=== PATIENT | female | born 1990 | race Caucasian/White ===

== ENCOUNTER → 2017-04-22 | Outpatient (CLI) | payer OTHER ==
--- NOTE | 2017-04-22 18:33 | RADIOLOGY REPORT (SQ) ---
EXAM DESCRIPTION: CT RT UPPER EXTREMITY WITHOUT COMPLETED DATE/TIME: 04/22/2017 12:49 pm REASON FOR STUDY: RECURRENT DISLOCATION, RIGHT SHOULDER M24.411 RECURRENT DISLOCATION, RIGHT SHOULD ER COMPARISON: None. TECHNIQUE: Axial imaging performed through the rightshoulder with reformatted oblique coronal and ob lique sagittal imaging windowed for bone and soft tissues. All CT scanners at this facility use dose modulation, iterative reconstruction, and/or weight based d osing when appropriate to reduce radiation dose to as low as reasonably achievable (ALARA). [facility]: Dose Right [facility]: CareDose [facility]: Dose Right [facility]: Teradose 4D [facility]: Smart TARGET BRAZIL RADIATION DOSE: Up-to-date CT equipment and radiation dose reduction techniques were employed. CTDIv ol: 32.1 mGy. DLP: 790 mGy-cm. mGy. LIMITATIONS: None. FINDINGS: SOFT TISSUES: There is no significant finding. BONY ARCHITECTURE: There is no Hill-Sachs deformity. There is no Bankart lesion. GLENOHUMERAL JOINT: Glenohumeral joint is normal. There is no current dislocation. ACROMION AND AC JOINT: There is no significant finding. GLENOID, LABRUM AND BICEPS: The biceps tendon is in the bicipital groove. The labrum is not well israel luated. OTHER: No other significant finding. IMPRESSION: No significant abnormality is seen. Consider MRI for better evaluation of the soft tiss ues including the rotator cuff and glenoid labrum. TECHNICAL DOCUMENTATION: JOB ID: [id number] Quality ID # [id number]: Final reports with documentation of one or more dose reduction techniques (e.g., Au tomated exposure control, adjustment of the mA and/or kV according to patient size, use of iterative reconstruction technique) 2010 [employer]- All Rights Reserved
== END ==
LOC: RAD 12:36
PROVIDERS: ATTEND Orthopaedic Surgery
DX: M24.411 Recurrent dislocation, right shoulder (principal)

== ENCOUNTER 2018-04-23 17:11 | Emergency (ER) | payer OTHER ==
[2018-04-23 17:18] VITALS: BP 138/78
--- NOTE | 2018-04-23 17:32 | ER Document Report ---
HPI - HPI Patient complains to provider of: Breast leaking and pelvic cramping Onset: Other - Thursday Onset/Duration: Waxing and waning Pain Level: 3 Context: 27-year-old female is complaining of spontaneous discharge from both breasts when the shower and also she can manually express it since Thursday. She also has not had a menses for 2 months. Negative home test. She has pelvic cramping. No vaginal discharge or odor. Her ParaGard was taken out 6-7 weeks ago which was a copper IUD without hormones. No history of thyroid problems. She had a breast augmentation October 05, 2017. Associated Symptoms: None Exacerbated by: Denies Past Medical History - General Information source: Patient - Social History Smoking Status: Current Every Day Smoker Frequency of alcohol use: None Drug Abuse: None Lives with: Family Family History: Reviewed & Not Pertinent - Medical History Medical History: Negative Renal/ Medical History: Denies: Hx Peritoneal Dialysis Past Surgical History: Reports: Other - breast augmentation Vertical Provider Document - CONSTITUTIONAL Agree With Documented VS: Yes Exam Limitations: No Limitations - INFECTION CONTROL TRAVEL OUTSIDE OF THE U.S. IN LAST 30 DAYS: No - NECK Neck: Supple, Thyroid Normal - RESPIRATORY Respiratory: Breath Sounds Normal, No Respiratory Distress Notes: no red streaking, pain or drainage of nipples/breasts at this time - CARDIOVASCULAR Cardiovascular: Regular Rate, Regular Rhythm - NEURO Level of Consciousness: Alert - DERM Integumentary: No Rash Course - Re-evaluation Re-evalutation: 04/23/18 19:25 test is negative, prolactin, TSH, gonorrhea, Chlamydia are pending. Urinalysis is pending. Her wet prep shows bacterial vaginosis I will treat with Flagyl. Patient does not want to take treatment for possible gonorrhea or chlamydia because she was negative when she was in rehab. She is "sober" at this time. 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 See [employer] if the symptoms persist Prescriptions: Metronidazole [Flagyl 500 mg Tablet] 500 mg PO BID #14 tablet Referrals: PABLO CONLEY MD [Primary Care Provider] - 04/26/18
[2018-04-23 18:32] LABS: BACTERIA (WET MOUNT) 4+ BACTERIA SEEN; EPITHELIALS (WET MOUNT) 4+ EPITHELIALS SEEN; RBCS (WET MOUNT) FEW RBCS SEEN; T.VAGINALIS (WET MOUNT) NO TRICHOMONAS SEEN; WBCS (WET MOUNT) 1+ WBCS SEEN; YEAST (WET MOUNT) NO YEAST SEEN
[2018-04-23 19:56] LABS: CHLAM PCR NOT DETECTED (NOT DETECT); GON PCR NOT DETECTED (NOT DETECT)
[2018-04-23 20:06] LABS: APPEARANCE,URINE CLOUDY; BILIRUBIN,URINE NEGATIVE (NEGATIVE); COLOR,URINE YELLOW; GLUCOSE, URINE NEGATIVE (NEGATIVE); KETONES,URINE NEGATIVE (NEGATIVE); LEUKOCYTE ESTERASE,URINE NEGATIVE (NEGATIVE); NITRITE,URINE NEGATIVE (NEGATIVE); PROTEIN,URINE NEGATIVE (NEGATIVE); URINE SPECIFIC GRAVITY 1.015; UROBILINOGEN,URINE NEGATIVE mg/dL (<2.0)
[2018-04-23 21:16] LABS: ALANINE AMINOTRANSFERASE 105 U/L (9-52); ALBUMIN 4.4 g/dL (3.5-5.0); ALKALINE PHOSPHATASE 96 U/L (38-126); ANION GAP 15 (5-19); ASPARTATE AMINO TRANSFERASE 44 U/L (14-36); BILIRUBIN,DIRECT 0.3 mg/dL (0.0-0.4); BILIRUBIN,TOTAL 0.4 mg/dL (0.2-1.3); BLOOD UREA NITROGEN 13 mg/dL (7-20); CARBON DIOXIDE 23 mmol/L (22-30); CHLORIDE 106 mmol/L (98-107); GLUCOSE 86 mg/dL (75-110); POTASSIUM 3.7 mmol/L (3.6-5.0); SODIUM 143.9 mmol/L (137-145); TOTAL PROTEIN 7.3 g/dL (6.3-8.2)
== END 2018-04-23 19:43 | disposition home or self-care (01) ==
LOC: ER 17:11
DX: N76.0 Acute vaginitis (principal); B96.89 Other specified bacterial agents as the cause of diseases classified elsewhere; N91.2 Amenorrhea, unspecified; O92.6 Galactorrhea; F17.200 Nicotine dependence, unspecified, uncomplicated; Z98.890 Other specified postprocedural states
CPT/HCPCS: 36415; 80053; 81001; 84146; 84443; 84703; 87210; 87491; 87591; 99283

== ENCOUNTER 2018-06-02 15:13 | Emergency (ER) | payer OTHER ==
[2018-06-02] MEDS ORDERED: NORMAL SALINE 1000 ML 1,000 ML IV ONE (15:33)
--- NOTE | 2018-06-02 15:34 | ER Document Report ---
ED Medical Screen (RME) - General Chief Complaint: Abdominal Pain Stated Complaint: ABDOMINAL PAIN Time Seen by Provider: 06/02/18 15:28 TRAVEL OUTSIDE OF THE U.S. IN LAST 30 DAYS: No - HPI Notes: 06/02/18 15:34 Intermittent right lower quadrant abdominal pain with nausea vomiting - Related Data Allergies/Adverse Reactions: amoxicillin Allergy (Verified 06/02/18 15:28) Penicillins Allergy (Verified 06/02/18 15:28) Past Medical History - Social History Frequency of alcohol use: None Drug Abuse: None Renal/ Medical History: Denies: Hx Peritoneal Dialysis Psychiatric Medical History: Reports: Hx Depression - severe anxiety Past Surgical History: Reports: Hx Breast Surgery - breast augmentation, Hx Tonsillectomy - adenoids, Other - breast augmentation Review of Systems - Review of Systems Gastrointestinal: Abdominal pain Physical Exam - Vital signs Vitals: Temp Pulse Resp BP Pulse Ox 98.4 F 96 14 134/73 H 100 06/02/18 15:17 06/02/18 15:17 06/02/18 15:17 06/02/18 15:17 06/02/18 15:17 - Respiratory Respiratory status: No respiratory distress Chest status: Nontender Breath sounds: Normal Chest palpation: Normal - Cardiovascular Rhythm: Regular Heart sounds: Normal auscultation Course - Vital Signs Vital signs: Temp Pulse Resp BP Pulse Ox 98.4 F 96 14 134/73 H 100 06/02/18 15:17 06/02/18 15:17 06/02/18 15:17 06/02/18 15:17 06/02/18 15:17 Doctor's Discharge - Discharge Referrals: MARLIOU TREVIÑO MD [Primary Care Provider] - Follow up as needed
[2018-06-02 16:44] LABS: APPEARANCE,URINE SLIGHTLY-CLOUDY; BILIRUBIN,URINE NEGATIVE (NEGATIVE); COLOR,URINE YELLOW; GLUCOSE, URINE NEGATIVE (NEGATIVE); KETONES,URINE NEGATIVE (NEGATIVE); LEUKOCYTE ESTERASE,URINE NEGATIVE (NEGATIVE); NITRITE,URINE NEGATIVE (NEGATIVE); PROTEIN,URINE NEGATIVE (NEGATIVE); URINE SPECIFIC GRAVITY 1.014; UROBILINOGEN,URINE NEGATIVE mg/dL (<2.0)
--- NOTE | 2018-06-02 17:02 | ER Document Report ---
ED General - General Chief Complaint: Abdominal Pain Stated Complaint: ABDOMINAL PAIN Time Seen by Provider: 06/02/18 15:28 TRAVEL OUTSIDE OF THE U.S. IN LAST 30 DAYS: No - HPI Notes: Patient is a 27-year-old female approximately 4-6 weeks who presents to the ED complaining of right lower pelvic pain intermittently over the last 2 weeks. Patient is the pain does not radiate. She is eating and drinking without any difficulties. She is urinating normally and having bowel movements. She has not had any vaginal discharge, odor, or bleeding. She has no concerns with STDs or STI's at this time. Patient states that she did have a home test that was positive and then another urinary test was positive by her primary care provider. She has not had any ultrasounds. No other significant past medical history. Denies any smoking, IV drug use, alcohol involvement. Denies any headache, fever, URI, sore throat, chest pain, palpitations, syncope, cough, shortness of breath, wheeze, dyspnea, nausea/ vomiting/diarrhea, urinary retention, dysuria, hematuria, or rash. - Related Data Allergies/Adverse Reactions: amoxicillin Allergy (Verified 06/02/18 15:28) Penicillins Allergy (Verified 06/02/18 15:28) Past Medical History - Social History Smoking Status: Former Smoker Frequency of alcohol use: None Drug Abuse: None Family History: Reviewed & Not Pertinent Patient has suicidal ideation: No Patient has homicidal ideation: No Renal/ Medical History: Denies: Hx Peritoneal Dialysis Psychiatric Medical History: Reports: Hx Depression - severe anxiety Past Surgical History: Reports: Hx Breast Surgery - breast augmentation, Hx Tonsillectomy - adenoids, Other - breast augmentation Review of Systems - Review of Systems -: Yes All other systems reviewed and negative Physical Exam - Vital signs Vitals: Temp Pulse Resp BP Pulse Ox 98.4 F 96 14 134/73 H 100 06/02/18 15:17 06/02/18 15:17 06/02/18 15:17 06/02/18 15:17 06/02/18 15:17 - Notes Notes: PHYSICAL EXAMINATION: GENERAL: Well-appearing, well-nourished and in no acute distress. LUNGS: Breath sounds clear to auscultation bilaterally and equal. No wheezes rales or rhonchi. HEART: Regular rate and rhythm without murmurs, rubs, gallops. ABDOMEN: Soft, nondistended abdomen. No guarding, no rebound. No masses appreciated. Normal bowel sounds present. No CVA tenderness bilaterally. + mild rt lower pelvic tenderness to palp. No tenderness at McBurney point. [place] neg. : deferred Musculoskeletal: FROM to passive/active. Strength 5+/5. Extremities: No cyanosis, clubbing, or edema b/l. Peripheral pulses 2+. Capillary refill less than 3 seconds. NEUROLOGICAL: Normal speech, normal gait. PSYCH: Normal mood, normal affect. SKIN: Warm, Dry, normal turgor, no rashes or lesions noted. Course - Re-evaluation Re-evalutation: 06/02/18 19:07 Patient is an afebrile, well-hydrated, 33-year-old female who presents to the ED with rt lower pelvic pain in early . Vitals are acceptable without any significant tachycardia, tachypnea, or hypoxia. PE is otherwise unremarkable. CBC, CMP, lipase unremarkable for acute pathology. HCG at 5282. TVUS shows evidence of the gest sac & sac. UA unremarkable. Patient is nontoxic-appearing is tolerating p.o. without any difficulties. No other labs or imaging warranted at this time based on H&P. Low suspicion/risk for acute appendicitis, bowel obstruction, acute cholecystitis, acute cholangitis, perforated diverticulitis, incarcerated hernia, pancreatitis, perforated ulcer, peritonitis, sepsis, pelvic inflammatory disease, tubo-ovarian abscess, ovarian torsion, or other systemic emergent condition at this time. Patient is aware that her condition can change from initial presentation and she needs to monitor symptoms closely and seek medical attention if any acute changes. Recheck HCG in 2-3 days, may need repeat US next week as well. I did review with patient that we cannot adequately rule out an ectopic as this appears to be a very early at this time. Conservative measures otherwise for symptoms. Recheck with your PCM/OBGYN in 2-3 days, outpt lab ordered given for HCG. Return to the ED with any worsening/concerning symptoms otherwise as reviewed in discharge. Patient is in agreement. - Vital Signs Vital signs: Temp Pulse Resp BP Pulse Ox 98.4 F 96 14 134/73 H 100 06/02/18 15:17 06/02/18 15:17 06/02/18 15:17 06/02/18 15:17 06/02/18 15:17 - Laboratory Result Diagrams: 06/02/18 18:18 06/02/18 17:06 Laboratory results interpreted by me: 06/02/18 06/02/18 15:27 17:06 Beta HCG, Quant 5282.50 H Urine Ascorbic Acid 40 H Discharge - Discharge Clinical Impression: Pelvic pain Qualifiers: Weeks of gestation: less than 8 weeks Qualified Code(s): Z3A.01 - Less than 8 weeks gestation of Condition: Stable Disposition: HOME, SELF-CARE Instructions: Pelvic Pain ([facility]) Additional Instructions: Maintain fluid intake Proper hygenic technique Keep the skin clean Tylenol as needed Return immediately if symptoms worsen F/u with your PCM/OBGYN in 2-3 days for a recheck Your results are showing a very early and you will need follow-up lab testing and an ultrasound next week as well to help confirm that this is not an ectopic . Return to the ED with any development of MARINA/fever, trouble with vision, eye redness, worsening pain, urethral discharge, urinary retention, blood in the urine, flank pain, abdominal pain, n/v, Chest Pain, shortness of breath, joint pains, trouble breathing, or any other worsening/concerning symptoms as needed otherwise. Forms: Elevated Blood Pressure, Follow-Up Laboratory Testing Referrals: MARILOU TREVIÑO MD [NO LOCAL MD] - 06/04/18 [facility] [Provider Group] - Follow up as needed
--- NOTE | 2018-06-02 17:15 | RADIOLOGY REPORT (SQ) ---
EXAM DESCRIPTION: U/S OB TRANSVAG W/DOPPLER COMPLETED DATE/TIME: 06/02/2018 5:01 pm REASON FOR STUDY: +preg abd pain COMPARISON: None. TECHNIQUE: Transvaginal static and realtime grayscale images acquired of the pelvis. Additional rahul cted spectral and color Doppler images recorded. All images stored on PACs. bHCG: Pending. LIMITATIONS: None. FINDINGS: UTERUS: No masses. No anomalies. GESTATIONAL SAC: Yes. YOLK SAC: Yes. POLE: No. RIGHT ADNEXA: Normal ovary with normal vascular flow. No adnexal free fluid. No adnexal masses. LEFT ADNEXA: Normal ovary with normal vascular flow. No adnexal free fluid. No adnexal masses. FREE FLUID: A small amount of free fluid is seen adjacent to the left ovary. OTHER: No other significant finding. IMPRESSION: POSSIBLE EARLY INTRAUTERINE . BHCG LEVEL NOT AVAILABLE FOR CORRELATION WITH US FINDINGS. CONSIDER F/U BHCG AND/OR ULTRASOUND FOR VERIFICATION AND TO EXCLUDE ECTOPIC . Trimester of : First - 0 to 13 weeks. TECHNICAL DOCUMENTATION: JOB ID: [id number] [employer]- All Rights Reserved Reading location - IP/workstation name: [email or web address]
[2018-06-02 18:19] LABS: ALANINE AMINOTRANSFERASE 36 U/L (9-52); ALBUMIN 4.7 g/dL (3.5-5.0); ALKALINE PHOSPHATASE 64 U/L (38-126); ANION GAP 12 (5-19); ASPARTATE AMINO TRANSFERASE 26 U/L (14-36); BILIRUBIN,DIRECT 0.2 mg/dL (0.0-0.4); BILIRUBIN,TOTAL 0.2 mg/dL (0.2-1.3); BLOOD UREA NITROGEN 12 mg/dL (7-20); CALCIUM 9.5 mg/dL (8.4-10.2); CARBON DIOXIDE 24 mmol/L (22-30); CHLORIDE 105 mmol/L (98-107); GLUCOSE 83 mg/dL (75-110); LIPASE 232.6 U/L (23-300); TOTAL PROTEIN 7.6 g/dL (6.3-8.2)
[2018-06-02 18:36] LABS: ABSOLUTE EOSINOPHILS # (AUTO) 0.2 10^3/uL (0.0-0.6); ABSOLUTE LYMPHOCYTES (AUTO) 2.4 10^3/uL (0.5-4.7); ABSOLUTE MONOCYTES (AUTO) 0.5 10^3/uL (0.1-1.4); ABSOLUTE NEUT (AUTO) 4.9 10^3/uL (1.7-8.2); BASOPHILS % (AUTO) 0.2 % (0-2); EOSINOPHILS % (AUTO) 2.1 % (0-6); HEMATOCRIT 38.8 % (36.0-47.0); HEMOGLOBIN 13.5 g/dL (12.0-15.5); LYMPHOCYTES % (AUTO) 29.9 % (13-45); MEAN CORPUSCULAR HEMOGLOBIN 32.3 pg (27.0-33.4); MEAN CORPUSCULAR HGB CONC 34.8 g/dL (32.0-36.0); MEAN CORPUSCULAR VOLUME 93 fl (80-97); MONOCYTES % (AUTO) 6.6 % (3-13); PLATELET COUNT 273 10^3/uL (150-450); RED BLOOD COUNT 4.18 10^6/uL (3.72-5.28); RED CELL DISTRIBUTION WIDTH 12.4 % (11.5-14.0); SEGMENTED NEUTROPHILS % (AUTO) 61.2 % (42-78); TOTAL CELLS COUNTED % (AUTO) 100 %
[2018-06-02 19:31] VITALS: BP 124/76
== END 2018-06-02 19:31 | disposition home or self-care (01) ==
LOC: ER 15:13
DX: O26.91 Pregnancy related conditions, unspecified, first trimester (principal); R10.2 Pelvic and perineal pain; Z3A.01 Less than 8 weeks gestation of pregnancy; Z87.891 Personal history of nicotine dependence
CPT/HCPCS: 36415; 76817; 80053; 81001; 83690; 84702; 85025; 93976; 99284

== ENCOUNTER 2018-11-20 21:28 | Outpatient (CLI) | payer OTHER, MEDICAID ==
[2018-11-20 22:05] LABS: APPEARANCE,URINE SLIGHTLY-CLOUDY; BILIRUBIN,URINE NEGATIVE (NEGATIVE); COLOR,URINE STRAW; GLUCOSE, URINE NEGATIVE (NEGATIVE); KETONES,URINE NEGATIVE (NEGATIVE); LEUKOCYTE ESTERASE,URINE NEGATIVE (NEGATIVE); NITRITE,URINE NEGATIVE (NEGATIVE); PROTEIN,URINE NEGATIVE (NEGATIVE); URINE SPECIFIC GRAVITY 1.004; UROBILINOGEN,URINE NEGATIVE mg/dL (<2.0)
[2018-11-20 22:12] LABS: URINE AMPHETAMINES SCREEN NEGATIVE; URINE BARBITURATES SCREEN NEGATIVE; URINE BENZODIAZEPINES SCREEN NEGATIVE; URINE MARIJUANA (THC) SCREEN NEGATIVE; URINE METHADONE SCREEN NEGATIVE; URINE PHENCYCLIDINE SCREEN NEGATIVE
[2018-11-20 22:13] LABS: URINE COCAINE SCREEN NEGATIVE
== END 2018-11-20 22:57 | disposition home or self-care (01) ==
LOC: LC 21:28
PROVIDERS: ATTEND Obstetrics & Gynecology
PROC: 4A1HXCZ Monitoring of Products of Conception, Cardiac Rate, External Approach (ICD-10-PCS; principal; 2018-11-20)
DX: O47.03 False labor before 37 completed weeks of gestation, third trimester (principal); Z3A.29 29 weeks gestation of pregnancy
CPT/HCPCS: 80307; 81001

== ENCOUNTER 2019-01-20 11:02 | Outpatient (CLI) | payer OTHER, MEDICAID ==
[2019-01-20 11:46] LABS: APPEARANCE,URINE SLIGHTLY-CLOUDY; BILIRUBIN,URINE NEGATIVE (NEGATIVE); COLOR,URINE COLORLESS; GLUCOSE, URINE NEGATIVE (NEGATIVE); KETONES,URINE NEGATIVE (NEGATIVE); LEUKOCYTE ESTERASE,URINE NEGATIVE (NEGATIVE); NITRITE,URINE NEGATIVE (NEGATIVE); PROTEIN,URINE NEGATIVE (NEGATIVE); URINE SPECIFIC GRAVITY 1.001; UROBILINOGEN,URINE NEGATIVE mg/dL (<2.0)
[2019-01-20 12:08] LABS: ABSOLUTE EOSINOPHILS # (AUTO) 0.1 10^3/uL (0.0-0.6); ABSOLUTE LYMPHOCYTES (AUTO) 1.8 10^3/uL (0.5-4.7); ABSOLUTE MONOCYTES (AUTO) 0.9 10^3/uL (0.1-1.4); ABSOLUTE NEUT (AUTO) 5.7 10^3/uL (1.7-8.2); BASOPHILS % (AUTO) 0.2 % (0-2); EOSINOPHILS % (AUTO) 0.9 % (0-6); HEMATOCRIT 32.1 % (36.0-47.0); HEMOGLOBIN 11.3 g/dL (12.0-15.5); MEAN CORPUSCULAR HEMOGLOBIN 31.3 pg (27.0-33.4); MEAN CORPUSCULAR HGB CONC 35.2 g/dL (32.0-36.0); MEAN CORPUSCULAR VOLUME 89 fl (80-97); MONOCYTES % (AUTO) 10.3 % (3-13); PLATELET COUNT 254 10^3/uL (150-450); RED BLOOD COUNT 3.61 10^6/uL (3.72-5.28); RED CELL DISTRIBUTION WIDTH 12.4 % (11.5-14.0); SEGMENTED NEUTROPHILS % (AUTO) 67.6 % (42-78); TOTAL CELLS COUNTED % (AUTO) 100 %; WHITE BLOOD COUNT 8.4 10^3/uL (4.0-10.5)
[2019-01-20 12:09] LABS: URINE AMPHETAMINES SCREEN NEGATIVE; URINE BARBITURATES SCREEN NEGATIVE; URINE BENZODIAZEPINES SCREEN NEGATIVE; URINE COCAINE SCREEN NEGATIVE; URINE MARIJUANA (THC) SCREEN NEGATIVE; URINE METHADONE SCREEN NEGATIVE; URINE PHENCYCLIDINE SCREEN NEGATIVE
[2019-01-20 12:13] LABS: UR PRO/CREAT RATIO RESULT 1.3 mg/mg (0.0-0.2); URINE CREATININE 12.5 mg/dL (16-327); URINE PROTEIN 16.4 mg/dL (<12)
[2019-01-20 12:40] LABS: ALANINE AMINOTRANSFERASE 9 U/L (9-52); ALKALINE PHOSPHATASE 167 U/L (38-126); ANION GAP 6 (5-19); ASPARTATE AMINO TRANSFERASE 11 U/L (14-36); BILIRUBIN,DIRECT 0.2 mg/dL (0.0-0.4); BILIRUBIN,TOTAL 0.3 mg/dL (0.2-1.3); BLOOD UREA NITROGEN 4 mg/dL (7-20); CARBON DIOXIDE 19 mmol/L (22-30); CHLORIDE 111 mmol/L (98-107); SODIUM 136.2 mmol/L (137-145); TOTAL PROTEIN 5.7 g/dL (6.3-8.2); URIC ACID 4.3 mg/dL (2.5-6.2)
[2019-01-20 12:43] LABS: GLUCOSE 69 mg/dL (75-110)
--- NOTE | 2019-01-20 13:03 | Non Stress Test Report ---
Non Stress Test Datetime Report Generated by CPN: 01/20/2019 13:02 DEMOGRAPHIC EGA NST: 37.6 INDICATION Indication for Study: Ordered by Provider MONITORING Monitor Explained: Monitor Explained; Test Explained; Patient Verbalized Understanding Time on Monitor: 01/20/2019 11:18 Time off Monitor: 01/20/2019 11:41 NST Duration: 23 NST INTERVENTIONS NST Interventions: PO Hydration Physician Notified NST: K.Reno, CNM BABY A: [id number] BABY A Movement : Present Contraction Frequency : 4-8 FHR Baseline : 150 Accelerations : 15X15 Decelerations : None Variability : Moderate 6-25bpm NST Review: Meets Criteria for Reactive NST NST Review and Verified By : Parul Sesay RNC NST Results: Reactive NST REPORT Report Trigger: Send Report
== END 2019-01-20 12:52 | disposition home or self-care (01) ==
LOC: LC 11:02
PROVIDERS: ATTEND Obstetrics & Gynecology Gynecology
PROC: 4A1HXCZ Monitoring of Products of Conception, Cardiac Rate, External Approach (ICD-10-PCS; principal; 2019-01-20)
DX: O14.93 Unspecified pre-eclampsia, third trimester (principal); O47.1 False labor at or after 37 completed weeks of gestation; Z3A.37 37 weeks gestation of pregnancy
CPT/HCPCS: 36415; 59025; 80053; 80307; 81001; 82570; 83615; 84156; 84550; 85025

== ENCOUNTER 2019-06-24 18:21 | Emergency (ER) | payer MEDICAID, OTHER ==
--- NOTE | 2019-06-24 20:02 | ER Document Report ---
HPI - HPI Patient complains to provider of: right shoulder pain Time Seen by Provider: 06/24/19 19:36 Onset/Duration: Gradual, Intermittent Quality of pain: Achy, Cramping Severity: Moderate Pain Level: 3 Context: 29 yr old female pt, with the listed pmh to include christopher, with hx of chronic intermittent frequent right shoulder dislocations, here for an acute exacerbation of her right shoulder pain secondary to multiple spontaneous dislocations with a few earlier today. she states her shoulder always hurts but she doesn't like to be on pain meds so she only comes in when the pain isn't controlled with tylenol or motrin. states she has seen beny, for this and was told there wasn't anything else they could really do, she is awaiting an apt with an gama-danlos specialist at [place] next month as that was the soonest they could get her in to see if there are any other options to reduce the frequency of her shoulder dislocations. she is right handed. states the shoulder just spontaneously pops out and she is able to easily and quickly get it back in. denies prolonged dislocation today or recently. she states she doesn't like steroids and steroid injections along with po steroids don't work. none recently. no numbness,weakness or tingling. no surgeries on this extremity. otc meds helping minimally. hasn't otherwise sought care until now. no pain anywhere else. pt able to walk. denies intoxication. pain worse with movement and palpation. better with rest. no other fall or trauma or associated sx. Pt denies any prior personal cardiac history. denies any family history of sudden or cardiac dz at a young age. no syncope. no palpitations. no hx of mi, cva, tia, or cad. no ripping or tearing sensation. no cp, neck pain, back pain, or sob. no fevers. denies any blood thinners. No prior history of blood clots. No recent long distance travel/immobilization, recent surgery, exogenous estrogen use, hemoptysis, history of cancer, or calf pain/swelling. No prior history of arrhythmias. denies . no other complaints at this time. Associated Symptoms: denies: Chest pain, Fever, Headache Exacerbated by: Movement Relieved by: Remaining still Similar symptoms previously: Yes Recently seen / treated by doctor: No - ROS Systems Reviewed and Negative: Yes All other systems reviewed and negative - to include 10 systems unless mentioned in the hpi - REPRODUCTIVE Reproductive: DENIES: : Past Medical History - General Information source: Patient - Social History Smoking Status: Current Every Day Smoker Frequency of alcohol use: Social Drug Abuse: Marijuana Family History: Reviewed & Not Pertinent Patient has suicidal ideation: No Patient has homicidal ideation: No - Past Medical History Cardiac Medical History: Denies: Hx Atrial Fibrillation, Hx Coronary Artery Disease, Hx DVT, Hx Heart Attack, Hx Hypercholesterolemia, Hx Hypertension, Hx Peripheral Vascular Disease, Hx Pulmonary Embolism Pulmonary Medical History: Denies: Hx Asthma Endocrine Medical History: Denies: Hx Diabetes Mellitus Type 1, Hx Diabetes Mellitus Type 2 Renal/ Medical History: Denies: Hx Peritoneal Dialysis 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 Pleasant, young thin white female, appears uncomfortable with manipulation of right shoulder only, smiling, speaking in full sentences, in no sign of resp distress, easily sitting up, at bedside VITALS: reviewed, see vital signs table. HEAD: no_swelling\tenderness on the head, normocephalic, atraumatic NECK: supple, no midline neck_tenderness. no step offs or deformities. mild ttp over the right trapezius and right paracervical musculature. spasm noted. palpation here somewhat reproduces pts pain. no overlying skin changes, full rom and full strength with mild pain on lateral bending bilat. no sign of central cord syndrome, meningitis, or spinal cord involvement HEART: RRR LUNGS: CTAB, good air exchange diffusely BACK: no other back_tenderness EXTREMITIES: good pulse in all extremities, right shoulder: has no ecchymosis/erythema, no swelling, mild tenderness over the ant/post jt lines. no ttp over the bicipital groove or ac jt, neg speed and yergasons. neg drop can, neg snuff box ttp. no ttp anywhere else, and no_abrasions\lacerations other than as noted. Full rom and full strength with pain max on internal and external rotation of the right shoulder. Normal gait. good hand pick remover. brisk cap refill. no other shortening or rotation of the limb or obvious deformities to suggest trauma unless otherwise noted. no other swelling or ttp. no current shoulder dislocation. SKIN: warm, dry, good_color. no rash. no other grossly visible overlying skin changes to suggest trauma NEURO: cerebellar function intact, motor_intact and sensory_intact in injured_extremity. cranial nerves 2-12 intact - INFECTION CONTROL TRAVEL OUTSIDE OF THE [place].S. 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 denies current dislocation. is here solely for pain control since otc meds not controlling this acute exacerbation. she follows with tonio, and she is awaiting initial apt in the near future with the gama-danlos specialists at [place] for further options to tx her sx. according to the [place] drug database, she hasn't received any narcotics in the last 2yrs. pt refused steroids. she states flexeril doesn't work, she is willing to try other muscle relaxers and pain control. she responded well to tx here. advised to keep apt with specialist at [facility]. she refused xr here stating she would just wait to f/u with her specialists for an MRI of the shoulder as that would give them more details info and pt states she knew her arm wasn't dislocated or broken currently and didn't want an xr. will dc with a few vicodin and orphenadrine as the orphenadrine is less sedating, in hopes this will help her better than other muscle relaxers she has failed tx with. advised sx care, ice/heat to the area. advised to f/u with pcp/ortho in 1- 2 days. return for any worsening symptoms. vss. well appearing. satting well on ra. neurononfocal. pt understands and agrees to plan. On reexam, pt improved with tx listed. remained stable. nontoxic. well appearing. pain controlled. tolerating po. requesting to go home. Documentation achieved through voice recording which may lead to some occasional accidental typographical errors. Extensive efforts have been made to proof read documentation to make sure these are the least as possible. Category Date Time Status Hydrocodone/Acetaminophen [[place] 5-325 mg Tablet] Med 06/24/19 20:23 Discontinued 1 tab PO NOW ONE Methocarbamol [Robaxin 750 mg Tablet] Med 06/24/19 20:23 Discontinued 750 mg PO NOW ONE - Vital Signs Vital signs: Temp Pulse BP Pulse Ox 06/24/19 20:16 98.5 F 92 127/82 H 100 Discharge - Discharge Clinical Impression: Cervical radiculopathy Sprain of right shoulder Qualifiers: Encounter type: initial encounter Shoulder sprain type: unspecified sprain Qualified Code(s): S43.401A - Unspecified sprain of right shoulder joint, initial encounter Condition: Good Disposition: HOME, SELF-CARE Instructions: Neck Injury (Cervical Strain) ([facility]), Shoulder Dislocation ([facility]), Shoulder Injury ([facility]) Additional Instructions: Follow-up with PCP/ortho in 1 to 2 days. Return for any worsening symptoms. Do not work, drive, operate machinery, or take Tylenol with the pain medication or muscle relaxers. Follow-up with your orthopedist for possible MRIs of your neck and shoulder along with seeing the specialist at [place] as planned. you can get an [id number] TENS unit that may help with your symptoms along with massage therapy. Ice/heat to the area. Take the medication as prescribed. Prescriptions: Hydrocodone/Acetaminophen [[place] 5-325 mg Tablet] 1 tab PO Q6 PRN #12 tablet PRN Reason: For Pain Orphenadrine Citrate 100 mg PO BID PRN #20 tablet.sa PRN Reason: Muscle Spasms Referrals: MALKA WATERS MD [ACTIVE STAFF] - Follow up as needed PABLO CONLEY MD [ACTIVE STAFF] - Follow up tomorrow
[2019-06-24 20:19] VITALS: BP 127/82
[2019-06-24] MEDS ORDERED: HYDROCODONE/ACETAMINOPHEN 5-325 MG TABLET PO ONE (20:23)
[2019-06-24] MEDS ORDERED: METHOCARBAMOL 750 MG TABLET PO ONE (20:23)
== END 2019-06-24 20:37 | disposition home or self-care (01) ==
LOC: ER 18:21
DX: S43.401A Unspecified sprain of right shoulder joint, initial encounter (principal); M54.12 Radiculopathy, cervical region; M25.511 Pain in right shoulder; X58.XXXA Exposure to other specified factors, initial encounter; F17.200 Nicotine dependence, unspecified, uncomplicated
CPT/HCPCS: 99283; J3490

== ENCOUNTER → 2019-10-15 | Outpatient (CLI) | payer BC | LOC: OD 10:40 | PROVIDERS: ATTEND Obstetrics & Gynecology Gynecology | DX: Z34.90 Encounter for supervision of normal pregnancy, unspecified, unspecified trimester (principal) | CPT/HCPCS: 36415; 84702 ==

== ENCOUNTER 2019-11-16 11:07 | Emergency (ER) | payer BC ==
--- NOTE | 2019-11-16 12:12 | ER Document Report ---
ED Medical Screen (RME) - General Chief Complaint: Foot Injury Stated Complaint: LEFT FOOT INJURY Time Seen by Provider: 11/16/19 12:11 Primary Care Provider: MALKA WATERS MD [Primary Care Provider] - Follow up as needed Notes: 29-year-old female who is presents for left foot pain. Patient states dresser dropped onto the top of her left foot approximately 1-1/2 hours ago. Tender to top of forefoot. Distal pedal pulses 2+. Able to move toes. I have greeted and performed a rapid initial assessment of this patient. A comprehensive ED assessment and evaluation of the patient, analysis of test results and completion of the medical decision making process with be conducted by additional ED providers. TRAVEL OUTSIDE OF THE U.S. IN LAST 30 DAYS: No - Related Data Allergies/Adverse Reactions: amoxicillin Allergy (Verified 11/16/19 12:08) Penicillins Allergy (Verified 11/16/19 12:08) Past Medical History - Social History Chew tobacco use (# tins/day): No Frequency of alcohol use: None Drug Abuse: None - Past Medical History Cardiac Medical History: Denies: Hx Atrial Fibrillation, Hx Coronary Artery Disease, Hx DVT, Hx Heart Attack, Hx Hypercholesterolemia, Hx Hypertension, Hx Peripheral Vascular Disease, Hx Pulmonary Embolism Pulmonary Medical History: Denies: Hx Asthma Endocrine Medical History: Denies: Hx Diabetes Mellitus Type 1, Hx Diabetes Mellitus Type 2 Renal/ Medical History: Denies: Hx Peritoneal Dialysis GI Medical History: Denies: Hx Hepatitis Psychiatric Medical History: Reports: Hx Anxiety, Hx Depression - severe anxiety Infectious Medical History: Denies: Hx Hepatitis, Hx HIV Past Surgical History: Reports: Hx Breast Surgery - breast augmentation, Hx Tonsillectomy - adenoids, Other - breast augmentation - Immunizations Immunizations up to date: Yes Physical Exam - Vital signs Vitals: Temp Pulse Resp BP Pulse Ox 97.8 F 79 20 144/84 H 100 11/16/19 12:11/16/19 12:11/16/19 12:11/16/19 12:11/16/19 12:01 Course - Vital Signs Vital signs: Temp Pulse Resp BP Pulse Ox 97.8 F 79 20 144/84 H 100 11/16/19 12:01 11/16/19 12:01 11/16/19 12:01 11/16/19 12:01 11/16/19 12:01 Doctor's Discharge - Discharge Referrals: MALKA WATERS MD [Primary Care Provider] - Follow up as needed
--- NOTE | 2019-11-16 12:58 | RADIOLOGY REPORT (SQ) ---
EXAM DESCRIPTION: FOOT LEFT COMPLETE COMPLETED DATE/TIME: 11/16/2019 12:47 pm REASON FOR STUDY: pain, dropped dresser on foot, COMPARISON: None. NUMBER OF VIEWS: Three views. TECHNIQUE: AP, lateral and oblique radiographic images acquired of the left foot. LIMITATIONS: None. FINDINGS: MINERALIZATION: Normal. BONES: No acute fracture or dislocation. No worrisome bone lesions. JOINTS: No effusions. SOFT TISSUES: No soft tissue swelling. No foreign body. OTHER: No other significant finding. IMPRESSION: NEGATIVE STUDY OF THE LEFT FOOT. NO RADIOGRAPHIC EVIDENCE OF ACUTE INJURY. TECHNICAL DOCUMENTATION: JOB ID: [id number] 2010 [employer]- All Rights Reserved Reading location - IP/workstation name: [email or web address]
--- NOTE | 2019-11-16 14:24 | ER Document Report ---
HPI - HPI Time Seen by Provider: 11/16/19 12:11 Pain Level: 4 Context: Patient is a 29-year-old female who presents the emergency department with a chief complaint of left foot pain. She was moving a dresser and it fell on top of her left foot. Patient is able to walk on her heel. She denies any numbness or tingling. Patient states that it is more of a sharp feeling pain. Patient is currently . - ROS Systems Reviewed and Negative: Yes All other systems reviewed and negative - CONSTITUTIONAL Constitutional: DENIES: Fever, Chills - REPRODUCTIVE LMP: 9 weeks Reproductive: REPORTS: : - MUSCULOSKELETAL Musculoskeletal: REPORTS: Extremity pain - left foot - DERM Skin Color: Normal Past Medical History - General Information source: Patient - Social History Smoking Status: Former Smoker Chew tobacco use (# tins/day): No Frequency of alcohol use: None Drug Abuse: None Family History: Reviewed & Not Pertinent Patient has suicidal ideation: No Patient has homicidal ideation: No - Past Medical History Cardiac Medical History: Denies: Hx Atrial Fibrillation, Hx Coronary Artery Disease, Hx DVT, Hx Heart Attack, Hx Hypercholesterolemia, Hx Hypertension, Hx Peripheral Vascular Disease, Hx Pulmonary Embolism Pulmonary Medical History: Denies: Hx Asthma Endocrine Medical History: Denies: Hx Diabetes Mellitus Type 1, Hx Diabetes Mellitus Type 2 Renal/ Medical History: Denies: Hx Peritoneal Dialysis GI Medical History: Denies: Hx Hepatitis Psychiatric Medical History: Reports: Hx Anxiety, Hx Depression - severe anxiety Infectious Medical History: Denies: Hx Hepatitis, Hx HIV Past Surgical History: Reports: Hx Breast Surgery - breast augmentation, Hx Tonsillectomy - adenoids, Other - breast augmentation - Immunizations Immunizations up to date: Yes Vertical Provider Document - CONSTITUTIONAL Agree With Documented VS: Yes Exam Limitations: No Limitations General Appearance: No Apparent Distress - INFECTION CONTROL TRAVEL OUTSIDE OF THE [place] IN LAST 30 DAYS: No - HEENT HEENT: Atraumatic, Normocephalic, PERRLA - NECK Neck: Normal Inspection - RESPIRATORY Respiratory: Breath Sounds Normal, No Respiratory Distress - CARDIOVASCULAR Cardiovascular: Regular Rate, Regular Rhythm Pulses: Normal: Posterior tibial, Dorsalis pedis - MUSCULOSKELETAL/EXTREMETIES Musculoskeletal/Extremeties: FROM, Tender - left foot Between first and second metatarsal, No Edema, Eccymosis - Left foot between first and second metatarsal. negative: Edema - NEURO Level of Consciousness: Awake, Alert, Appropriate Motor/Sensory: No Motor Deficit, No Sensory Deficit - DERM Integumentary: Warm, Dry, No Rash Course - Re-evaluation Re-evalutation: 11/16/19 14:24 Patient's left foot x-rays negative for any acute fractures. I discussed this with the patient. I offered her crutches, but she is refusing them at this time. Advised her to take Tylenol 1000 mg every 6 hours as needed for her pain. She will be provided an Gianluca wrap to help with any swelling. I have a very low suspicion for any life-threatening etiology at this time. Capillary refill less than 3 seconds. Dorsalis pedis pulse 2+. Follow-up precautions were given. Verbal discharge instructions were given to the patient. They verbalized understanding. They are stable for discharge. - Vital Signs Vital signs: Temp Pulse Resp BP Pulse Ox 97.8 F 79 20 144/84 H 100 11/16/19 12:01 11/16/19 12:01 11/16/19 12:01 11/16/19 12:01 11/16/19 12:01 Discharge - Discharge Clinical Impression: Contusion of left foot Qualifiers: Encounter type: initial encounter Qualified Code(s): S90.32XA - Contusion of left foot, initial encounter Condition: Stable Disposition: HOME, SELF-CARE Additional Instructions: You were seen today in the emergency department for foot pain. Please rest as much as you can, elevate your foot, wear an Gianluca wrap, apply ice, and take Tylenol 1000 mg every 6 hours for your pain. If you continue to have pain, follow-up with your primary care doctor. Referrals: MALKA WATERS MD [ACTIVE STAFF] - Follow up as needed [facility] [Provider Group] - Follow up as needed
[2019-11-16 14:30] VITALS: BP 115/71
== END 2019-11-16 14:29 | disposition home or self-care (01) ==
LOC: ER 11:07
DX: O9A.219 Injury, poisoning and certain other consequences of external causes complicating pregnancy, unspecified trimester (principal); S90.32XA Contusion of left foot, initial encounter; W20.8XXA Other cause of strike by thrown, projected or falling object, initial encounter; Y93.89 Activity, other specified; Z3A.00 Weeks of gestation of pregnancy not specified; Z87.891 Personal history of nicotine dependence
CPT/HCPCS: 99283

== ENCOUNTER 2019-11-19 21:32 | Emergency (ER) | payer BC ==
[2019-11-19] MEDS ORDERED: DIPHENHYDRAMINE HCL 50 MG/ML VIAL IM ONE (23:07)
--- NOTE | 2019-11-19 23:07 | ER Document Report ---
ED Medical Screen (RME) - General Chief Complaint: Vomiting Stated Complaint: VOMITING/NAUSEA/HEAD PAIN Time Seen by Provider: 11/19/19 22:47 Primary Care Provider: ASIYA MONROE FNP-C [Primary Care Provider] - Follow up as needed TRAVEL OUTSIDE OF THE U.S. IN LAST 30 DAYS: No - HPI Notes: 11/19/19 23:06 29-year-old female to the emergency department with complaints of nausea and vomiting that has gotten significantly worse in the past couple of days. She is 8 weeks . She is had a confirmed intrauterine on ultrasound. [facility] She is been taking Diclegis but is really not been working. Up until today she has been just horribly nauseated but now she is vomiting and cannot stop. Denies any fevers or chills. Denies any vaginal bleeding. This is her fourth . She had this same type of hyperemesis with her 2 prior girls but her boy she was not even remotely a sick. I performed a brief medical screening exam on the patient determined that the patient needs further evaluation and management by main side provider. I have placed initial orders to help expedite care. - Related Data Allergies/Adverse Reactions: amoxicillin Allergy (Verified 11/16/19 12:08) Penicillins Allergy (Verified 11/16/19 12:08) Past Medical History - Social History Chew tobacco use (# tins/day): No Frequency of alcohol use: None Drug Abuse: None - Past Medical History Cardiac Medical History: Denies: Hx Atrial Fibrillation, Hx Coronary Artery Disease, Hx DVT, Hx Heart Attack, Hx Hypercholesterolemia, Hx Hypertension, Hx Peripheral Vascular Disease, Hx Pulmonary Embolism Pulmonary Medical History: Denies: Hx Asthma Endocrine Medical History: Denies: Hx Diabetes Mellitus Type 1, Hx Diabetes Mellitus Type 2 Renal/ Medical History: Denies: Hx Peritoneal Dialysis GI Medical History: Denies: Hx Hepatitis Psychiatric Medical History: Reports: Hx Anxiety, Hx Depression - severe anxiety Infectious Medical History: Denies: Hx Hepatitis, Hx HIV Past Surgical History: Reports: Hx Breast Surgery - breast augmentation, Hx Tonsillectomy - adenoids, Other - breast augmentation - Immunizations Immunizations up to date: Yes Physical Exam - Vital signs Vitals: Temp Pulse Resp BP Pulse Ox 97.5 F 91 20 140/95 H 100 11/19/19 22:06 11/19/19 22:06 11/19/19 22:06 11/19/19 22:06 11/19/19 22:06 Course - Vital Signs Vital signs: Temp Pulse Resp BP Pulse Ox 97.5 F 91 20 140/95 H 100 11/19/19 22:06 11/19/19 22:06 11/19/19 22:06 11/19/19 22:06 11/19/19 22:06 Doctor's Discharge - Discharge Referrals: ASIYA MONROE FNP-C [Primary Care Provider] - Follow up as needed
[2019-11-19] MEDS ORDERED: METOCLOPRAMIDE HCL INJ/PF 10 MG/2 ML SDV IV ONE (23:08)
[2019-11-19] MEDS ORDERED: NORMAL SALINE 1000 ML 1,000 ML IV ONE (23:11)
[2019-11-20 00:23] LABS: ABSOLUTE EOSINOPHILS # (AUTO) 0.1 10^3/uL (0.0-0.6); ABSOLUTE LYMPHOCYTES (AUTO) 1.8 10^3/uL (0.5-4.7); ABSOLUTE MONOCYTES (AUTO) 0.6 10^3/uL (0.1-1.4); ABSOLUTE NEUT (AUTO) 8.2 10^3/uL (1.7-8.2); BASOPHILS % (AUTO) 0.3 % (0-2); EOSINOPHILS % (AUTO) 0.6 % (0-6); HEMATOCRIT 37.5 % (36.0-47.0); HEMOGLOBIN 12.8 g/dL (12.0-15.5); LYMPHOCYTES % (AUTO) 16.6 % (13-45); MEAN CORPUSCULAR HGB CONC 34.3 g/dL (32.0-36.0); MEAN CORPUSCULAR VOLUME 91 fl (80-97); PLATELET COUNT 315 10^3/uL (150-450); RED BLOOD COUNT 4.14 10^6/uL (3.72-5.28); RED CELL DISTRIBUTION WIDTH 12.9 % (11.5-14.0); SEGMENTED NEUTROPHILS % (AUTO) 76.5 % (42-78); TOTAL CELLS COUNTED % (AUTO) 100 %; WHITE BLOOD COUNT 10.7 10^3/uL (4.0-10.5)
[2019-11-20 00:34] LABS: APPEARANCE,URINE CLOUDY; BILIRUBIN,URINE NEGATIVE (NEGATIVE); COLOR,URINE YELLOW; GLUCOSE, URINE NEGATIVE (NEGATIVE); KETONES,URINE 20 mg/dL (NEGATIVE); LEUKOCYTE ESTERASE,URINE TRACE (NEGATIVE); NITRITE,URINE NEGATIVE (NEGATIVE); PROTEIN,URINE 30 mg/dL (NEGATIVE); URINE SPECIFIC GRAVITY 1.017; UROBILINOGEN,URINE NEGATIVE mg/dL (<2.0)
[2019-11-20 00:35] LABS: ALBUMIN 4.1 g/dL (3.5-5.0); ALKALINE PHOSPHATASE 90 U/L (38-126); ANION GAP 10 (5-19); ASPARTATE AMINO TRANSFERASE 18 U/L (14-36); BILIRUBIN,DIRECT 0.3 mg/dL (0.0-0.4); BILIRUBIN,TOTAL 0.3 mg/dL (0.2-1.3); BLOOD UREA NITROGEN 3 mg/dL (7-20); CALCIUM 9.7 mg/dL (8.4-10.2); CARBON DIOXIDE 24 mmol/L (22-30); CHLORIDE 103 mmol/L (98-107); GLUCOSE 100 mg/dL (75-110); POTASSIUM 4.2 mmol/L (3.6-5.0)
[2019-11-20] MEDS ORDERED: METOCLOPRAMIDE HCL INJ/PF 10 MG/2 ML SDV ONE (03:16)
--- NOTE | 2019-11-20 04:06 | ER Document Report ---
ED GI/ - General Chief Complaint: Nausea/Vomiting Stated Complaint: VOMITING/NAUSEA/HEAD PAIN Time Seen by Provider: 11/19/19 22:47 Primary Care Provider: ASIYA MONROE FNP-C [Primary Care Provider] - Follow up as needed Notes: Patient is a 29-year-old female that comes to the emergency department for chief complaint of nausea and vomiting affecting for trimester . She is G4, P3 at about 9 weeks by first trimester ultrasound. She states she was prescribed likely just and she has been tolerating with just waves of nausea but today she started vomiting and has vomited multiple times. She denies lower abdominal pain, vaginal bleeding, dysuria, fever. She denies any other complaints. Past medical history of diagnostic laparotomy and endoscopy for intermittent abdominal pain, diagnosed with IBS, anxiety/depression, and Gama- Danlos. TRAVEL OUTSIDE OF THE [place] IN LAST 30 DAYS: No - Related Data Allergies/Adverse Reactions: amoxicillin Allergy (Verified 11/16/19 12:08) Penicillins Allergy (Verified 11/16/19 12:08) Past Medical History - General Information source: Patient - Social History Smoking Status: Never Smoker Chew tobacco use (# tins/day): No Frequency of alcohol use: None Drug Abuse: None Lives with: Family Family History: Reviewed & Not Pertinent Patient has suicidal ideation: No Patient has homicidal ideation: No - Past Medical History Cardiac Medical History: Denies: Hx Atrial Fibrillation, Hx Coronary Artery Disease, Hx DVT, Hx Heart Attack, Hx Hypercholesterolemia, Hx Hypertension, Hx Peripheral Vascular Disease, Hx Pulmonary Embolism Pulmonary Medical History: Denies: Hx Asthma Endocrine Medical History: Denies: Hx Diabetes Mellitus Type 1, Hx Diabetes Mellitus Type 2 Renal/ Medical History: Denies: Hx Peritoneal Dialysis GI Medical History: Denies: Hx Hepatitis Psychiatric Medical History: Reports: Hx Anxiety, Hx Depression - severe anxiety Infectious Medical History: Denies: Hx Hepatitis, Hx HIV Past Surgical History: Reports: Hx Breast Surgery - breast augmentation, Hx Tonsillectomy - adenoids, Other - breast augmentation - Immunizations Immunizations up to date: Yes Review of Systems - Review of Systems Constitutional: No symptoms reported EENT: No symptoms reported Cardiovascular: No symptoms reported Respiratory: No symptoms reported Gastrointestinal: See HPI Genitourinary: No symptoms reported Female Genitourinary: See HPI Musculoskeletal: No symptoms reported Skin: No symptoms reported Hematologic/Lymphatic: No symptoms reported Neurological/Psychological: No symptoms reported Physical Exam - Vital signs Vitals: Temp Pulse Resp BP Pulse Ox 97.5 F 91 20 140/95 H 100 11/19/19 22:06 11/19/19 22:06 11/19/19 22:06 11/19/19 22:06 11/19/19 22:06 - Notes Notes: GENERAL: Alert, interacts well. No acute distress. HEAD: Normocephalic, atraumatic. EYES: Pupils equal, round, and reactive to light. Extraocular movements intact. ENT: Oral mucosa dry, tongue midline. Oropharynx unremarkable. Airway patent. LUNGS: Clear to auscultation bilaterally, no wheezes, rales, or rhonchi. No respiratory distress. HEART: Regular rate and rhythm. No murmur ABDOMEN: Soft, non-tender. Non-distended. Bowel sounds present in all 4 quadrants. GENITOURINARY: Deferred EXTREMITIES: Moves all 4 extremities spontaneously. No edema, normal radial and dorsalis pedis pulses bilaterally. No cyanosis. BACK: no cervical, thoracic, lumbar midline tenderness. No saddle anesthesia, normal distal neurovascular exam. Moves all extremities in full range of motion. NEUROLOGICAL: Alert and oriented x3. Normal speech. Cranial nerves II through XII grossly intact. PSYCH: Normal affect, normal mood. SKIN: Warm, dry, normal turgor. No rashes or lesions noted. Course - Re-evaluation Re-evalutation: CBC, chemistry, urinalysis actually are generally unremarkable. Vital signs unremarkable. Patient has a soft benign abdomen and she is quite well-appearing. She states she feels much improved after treatment from triage. She is getting IV fluids. We will p.o. challenge. On reevaluation patient has tolerated p.o. without any difficulty. She states she feels much better and she wants to go home. Discharged with Reglan. Discussed follow-up and return precautions. Patient states understanding and agreement. Well-appearing and stable at time of discharge. - Vital Signs Vital signs: Temp Pulse Resp BP Pulse Ox 98.1 F 66 16 113/71 100 11/20/19 04:46 11/20/19 04:46 11/20/19 04:46 11/20/19 04:46 11/20/19 04:46 - Laboratory Result Diagrams: 11/20/19 00:00 11/20/19 00:00 Laboratory results interpreted by me: 11/19/19 11/20/19 11/20/19 23:49 00:00 00:00 WBC 10.7 H Sodium 136.7 L BUN 3 L Creatinine 0.50 L Urine Protein 30 H Urine Ketones 20 H Ur Leukocyte Esterase TRACE H Discharge - Discharge Clinical Impression: Nausea and vomiting during Condition: Stable Disposition: HOME, SELF-CARE Additional Instructions: Take the Reglan as prescribed, you can take Benadryl with this for nausea. Drink plenty of fluids. I recommend starting with a bland diet and slowly progressing. Follow-up with [facility] for additional management. Return to the emergency department for any concerning or worsening symptoms including severe abdominal pain, fever, uncontrolled vomiting, or any other concerning or worsening symptoms. Prescriptions: Metoclopramide HCl [Reglan] 5 mg PO ASDIR PRN #30 tablet PRN Reason: Forms: Return to Work Referrals: ASIYA MONROE FNP-C [Primary Care Provider] - Follow up as needed
[2019-11-20 04:47] VITALS: BP 113/71
== END 2019-11-20 04:47 | disposition home or self-care (01) ==
LOC: ER 21:32
DX: O21.9 Vomiting of pregnancy, unspecified (principal); O26.891 Other specified pregnancy related conditions, first trimester; R51 Headache; Z3A.09 9 weeks gestation of pregnancy; Z88.0 Allergy status to penicillin; Z88.1 Allergy status to other antibiotic agents
CPT/HCPCS: 99284; 96372; 96361; 96374; 36415; 85025; 80053; 81001; J1200; J2765; J7030

== ENCOUNTER → 2019-12-09 | Outpatient (CLI) | payer BC ==
--- NOTE | 2019-12-09 15:55 | RADIOLOGY REPORT (SQ) ---
EXAM DESCRIPTION: FOOT LEFT COMPLETE COMPLETED DATE/TIME: 12/09/2019 3:35 pm REASON FOR STUDY: M79.672 PAIN IN LEFT FOOT M79.672 PAIN IN LEFT FOOT COMPARISON: 11/16/2019 NUMBER OF VIEWS: Three views. TECHNIQUE: AP, lateral and oblique radiographic images acquired of the left foot. LIMITATIONS: None. FINDINGS: MINERALIZATION: Normal. BONES: No acute fracture or dislocation. No worrisome bone lesions. JOINTS: No effusions. SOFT TISSUES: No soft tissue swelling. No foreign body. OTHER: No other significant finding. IMPRESSION: NEGATIVE STUDY OF THE LEFT FOOT. NO RADIOGRAPHIC EVIDENCE OF ACUTE INJURY. TECHNICAL DOCUMENTATION: JOB ID: [id number] 2010 [employer]- All Rights Reserved Reading location - IP/workstation name: [email or web address]
== END ==
LOC: RAD 15:09
PROVIDERS: ATTEND Nurse Practitioner Family
DX: M79.672 Pain in left foot (principal)

== ENCOUNTER → 2020-04-02 | Outpatient (CLI) | payer BC ==
--- NOTE | 2020-04-02 09:28 | ER RDC ASSESSMENT REPORT ---
Intake - In the Last 14 days Have you traveled outside [place]?: No Have you been in close contact with someone CONFIRMED: No Worked in Healthcare?: No - Symptoms Subjective Fever(Larned feverish): No Chills: No Muscule Aches: No Runny Nose: Yes Sore Throat: Yes Cough (New or worsening chronic cough): No Shortness of breath: No Nausea or Vomiting: Yes Headache: No Abdominal Pain: No Diarrhea(3 or more loose stools in last 24 hours): No - Do you have any of the following Chronic lung disease: Asthma or emphysema or COPD: No Cystic Fibrosis: No Diabetes: No High Blood Pressure: No Cardiovascular Disease: No Chronic Kidney Disease: No Chronic Liver Disease: No Chronic blood disorder like Sickle Cell Disease: No Weak immune system due to disease or medication: No Neurologic condition that limits movement: No Developmental delay - Moderate to Severe: No Recent (within past 2 weeks) or current : Yes --If current: Trimester: 2nd - 28 weeks Morbid Obesity (>100 pounds over ideal weight): No - Objective Vital Signs: 5'9" 210 lb Temperature: 96.0 F Pulse Rate: 100 Respiratory Rate: 16 Blood Pressure: 120/78 O2 Sat by Pulse Oximetry: 99 Objective: Given above, testing performed: If Testing Performed: Test Specimen Type Sent to Disposition: Home; [facility] General - General Chief Complaint: Sore Throat Time Seen by Provider: 04/02/20 09:25 Mode of Arrival: Ambulatory Information source: Patient - HPI Notes: 29-year-old gravid female presents to [facility] clinic for COVID-19 testing. Patient currently 28 weeks . Patient states she believes she might have been exposed to someone positive for COVID-19, they are currently waiting for test results at this time. Patient reports onset of symptoms 03/26/2020. She believes her symptoms may be related to seasonal allergies and the current . She is reporting mild rhinorrhea, sore throat, nausea, and occasional dyspnea with exertion. Patient denies any fever, chills, muscle aches, abdominal pain, cough, headache, or diarrhea. Patient has no significant medical history. - Related Data Allergies/Adverse Reactions: amoxicillin Allergy (Verified 11/16/19 12:08) Penicillins Allergy (Verified 11/16/19 12:08) Home Medications: Lexapro Vistaril Benadryl Past Medical History - General Information source: Patient - Social History Smoking Status: Former Smoker Family History: Reviewed & Not Pertinent - Past Medical History Cardiac Medical History: Reports: None Denies: Hx Atrial Fibrillation, Hx Coronary Artery Disease, Hx DVT, Hx Heart Attack, Hx Hypercholesterolemia, Hx Hypertension, Hx Peripheral Vascular Disease, Hx Pulmonary Embolism Pulmonary Medical History: Reports: None Denies: Hx Asthma EENT Medical History: Reports: None Neurological Medical History: Reports: None Endocrine Medical History: Reports: None. Denies: Hx Diabetes Mellitus Type 1, Hx Diabetes Mellitus Type 2 Renal/ Medical History: Reports: None. Denies: Hx Peritoneal Dialysis Malignancy Medical History: Reports: None GI Medical History: Reports: None. Denies: Hx Hepatitis Musculoskeletal Medical History: Reports None Skin Medical History: Reports None Psychiatric Medical History: Reports: Hx Anxiety, Hx Depression - severe anxiety Traumatic Medical History: Reports: None Infectious Medical History: Reports: None. Denies: Hx Hepatitis, Hx HIV Past Surgical History: Reports: Hx Breast Surgery - breast augmentation, Hx Tonsillectomy - adenoids, Other - breast augmentation Physical Exam - General General appearance: Appears well In distress: None Notes: PHYSICAL EXAMINATION: GENERAL: Well-appearing and in no acute distress. HEAD: Atraumatic, normocephalic. EYES: sclera anicteric, conjunctiva are normal. ENT: nares patent. Moist mucous membranes. NECK: Normal range of motion, supple without lymphadenopathy LUNGS: CTAB and equal. No wheezes rales or rhonchi. HEART: Regular rate and rhythm without murmurs ABDOMEN: Soft, nontender, normal bowel sounds, no guarding. Gravid uterus. EXTREMITIES: Normal range of motion, no pitting edema. No cyanosis. NEUROLOGICAL: Cranial nerves grossly intact. Normal speech. PSYCH: Normal mood, normal affect. SKIN: Warm, Dry, normal turgor, no rashes or lesions noted Patient Education/Counseling Counseling/Education: Patient presents with upper respiratory symptoms worrisome for possible Covid 19. Patient does not have emergency worrying symptoms such as difficulty breathing, shortness of breath, chest pain, pressure, confusion or cyanosis. Patient appears suitable for discharge as vital signs are stable and patient is nontoxic in appearance. Good return precautions have been discussed with patient, patient verbalized understanding and is agreeable with discharge plan of care at this time. Guidance for worsening S/SX: As a person under investigation for Covid 19, the [facility] of Health and Human Services, division of public health advises you to adhere to the following guidance until your test results are reported to you. If your test result is positive, you will receive additional information from your provider and your local health department at that time. Remain at home until you are cleared by the health provider or public health authorities. Keep a log of visitors to your home, notify any visitors to your home of your isolation status. If you plan to move to a new address or leave the county, notify the local health department in your County. Call your doctor or seek care if you have an urgent medical need. Before seeking medical care, call ahead to get instructions from the provider before arriving at the medical office clinic or hospital. Notify them that you are being tested for the virus that causes Covid 19 so that arrangements can be made, as necessary, to prevent transmission to others in the healthcare setting. Next, notify the local health department in your county. If a medical emergency arises and you need to call 911, inform the first responders that you are being tested for the virus that causes Covid 19. Next, notify the local health department in your county. RDC Discharge - Discharge Clinical Impression: Encounter for screening laboratory testing for COVID-19 virus Allergic rhinitis Qualifiers: Allergic rhinitis trigger: unspecified Allergic rhinitis seasonality: seasonal Qualified Code(s): J30.2 - Other seasonal allergic rhinitis Condition: Good Disposition: Home; Selfcare
[2020-04-02 10:00] VITALS: BP 120/78
[2020-04-02 12:00] LABS: A TYPE INFLUENZA AG NEGATIVE (NEGATIVE); B INFLUENZA AG NEGATIVE (NEGATIVE)
== END ==
LOC: RDC 09:05
PROVIDERS: ATTEND Registered Nurse
DX: O99.513 Diseases of the respiratory system complicating pregnancy, third trimester (principal); J30.2 Other seasonal allergic rhinitis; J02.9 Acute pharyngitis, unspecified; J34.89 Other specified disorders of nose and nasal sinuses; Z20.828 Contact with and (suspected) exposure to other viral communicable diseases; R06.09 Other forms of dyspnea; R11.0 Nausea; Z3A.28 28 weeks gestation of pregnancy; Z88.0 Allergy status to penicillin; Z88.1 Allergy status to other antibiotic agents; Z87.891 Personal history of nicotine dependence
CPT/HCPCS: 87070; 87880; 87635; 87804; C9803; 99201; 99211

== ENCOUNTER 2020-04-21 09:51 | Outpatient (CLI) | payer BC, MEDICAID ==
[2020-04-21 10:34] LABS: APPEARANCE,URINE CLEAR; BILIRUBIN,URINE NEGATIVE (NEGATIVE); COLOR,URINE STRAW; GLUCOSE, URINE NEGATIVE (NEGATIVE); KETONES,URINE NEGATIVE (NEGATIVE); LEUKOCYTE ESTERASE,URINE LARGE (NEGATIVE); NITRITE,URINE NEGATIVE (NEGATIVE); PROTEIN,URINE NEGATIVE (NEGATIVE); URINE SPECIFIC GRAVITY 1.003; UROBILINOGEN,URINE NEGATIVE mg/dL (<2.0)
[2020-04-21 10:47] LABS: ABSOLUTE EOSINOPHILS # (AUTO) 0.1 10^3/uL (0.0-0.6); ABSOLUTE LYMPHOCYTES (AUTO) 1.8 10^3/uL (0.5-4.7); ABSOLUTE MONOCYTES (AUTO) 0.6 10^3/uL (0.1-1.4); ABSOLUTE NEUT (AUTO) 5.1 10^3/uL (1.7-8.2); BASOPHILS % (AUTO) 0.1 % (0-2); EOSINOPHILS % (AUTO) 0.8 % (0-6); HEMATOCRIT 30.2 % (36.0-47.0); HEMOGLOBIN 10.5 g/dL (12.0-15.5); LYMPHOCYTES % (AUTO) 24.1 % (13-45); MEAN CORPUSCULAR HGB CONC 34.9 g/dL (32.0-36.0); MEAN CORPUSCULAR VOLUME 89 fl (80-97); MONOCYTES % (AUTO) 7.9 % (3-13); PLATELET COUNT 257 10^3/uL (150-450); RED CELL DISTRIBUTION WIDTH 12.5 % (11.5-14.0); SEGMENTED NEUTROPHILS % (AUTO) 67.1 % (42-78); TOTAL CELLS COUNTED % (AUTO) 100 %; WHITE BLOOD COUNT 7.5 10^3/uL (4.0-10.5)
[2020-04-21 10:51] LABS: URINE AMPHETAMINES SCREEN NEGATIVE; URINE BARBITURATES SCREEN NEGATIVE; URINE BENZODIAZEPINES SCREEN NEGATIVE; URINE COCAINE SCREEN NEGATIVE; URINE MARIJUANA (THC) SCREEN NEGATIVE; URINE METHADONE SCREEN NEGATIVE; URINE PHENCYCLIDINE SCREEN NEGATIVE
[2020-04-21 10:58] LABS: ALBUMIN 3.2 g/dL (3.5-5.0); ALKALINE PHOSPHATASE 112 U/L (38-126); ASPARTATE AMINO TRANSFERASE 14 U/L (14-36); BILIRUBIN,TOTAL 0.4 mg/dL (0.2-1.3); BLOOD UREA NITROGEN 3 mg/dL (7-20); CALCIUM 8.6 mg/dL (8.4-10.2); CARBON DIOXIDE 23 mmol/L (22-30); CHLORIDE 107 mmol/L (98-107); GLUCOSE 91 mg/dL (75-110); POTASSIUM 3.7 mmol/L (3.6-5.0); TOTAL PROTEIN 5.9 g/dL (6.3-8.2); URIC ACID 3.7 mg/dL (2.5-6.2)
[2020-04-21 11:04] LABS: ANION GAP 4 (5-19)
[2020-04-21] MEDS ORDERED: CEFTRIAXONE INJ 1000 MG VIAL IV ONE (11:22)
[2020-04-21] MEDS ORDERED: ACETAMINOPHEN 325 MG TABLET PO ONE (11:22)
[2020-04-21] MEDS ORDERED: RINGERS SOLUTION,LACTATED 1,000 ML IV ONE (11:26)
[2020-04-21] MEDS ORDERED: CEFTRIAXONE INJ 1000 MG VIAL ONE (11:33)
[2020-04-21] MEDS ORDERED: ACETAMINOPHEN 325 MG TABLET ONE (11:33)
[2020-04-21 14:04] LABS: UR PRO/CREAT RATIO RESULT 0.5 mg/mg (0.0-0.2); URINE CREATININE 26.4 mg/dL (16-327); URINE PROTEIN 14.4 mg/dL (<12)
== END 2020-04-21 14:40 | disposition home or self-care (01) ==
LOC: LC 09:51
PROVIDERS: ATTEND Obstetrics & Gynecology
DX: O47.03 False labor before 37 completed weeks of gestation, third trimester (principal); Z3A.31 31 weeks gestation of pregnancy
CPT/HCPCS: 36415; 83615; 84156; 84550; 82570; 85025; 80053; 81001; 80307; 59899; J0696

== ENCOUNTER 2020-05-04 20:01 | Outpatient (CLI) | payer BC, MEDICAID ==
[2020-05-04 20:33] LABS: APPEARANCE,URINE SLIGHTLY-CLOUDY; BILIRUBIN,URINE NEGATIVE (NEGATIVE); CALCIUM OXALATE CRYSTALS,URINE RARE /HPF; COLOR,URINE YELLOW; GLUCOSE, URINE NEGATIVE (NEGATIVE); KETONES,URINE NEGATIVE (NEGATIVE); LEUKOCYTE ESTERASE,URINE NEGATIVE (NEGATIVE); NITRITE,URINE NEGATIVE (NEGATIVE); PROTEIN,URINE 30 mg/dL (NEGATIVE); URINE SPECIFIC GRAVITY 1.017
[2020-05-04 21:04] LABS: URINE AMPHETAMINES SCREEN NEGATIVE; URINE BARBITURATES SCREEN NEGATIVE; URINE BENZODIAZEPINES SCREEN NEGATIVE; URINE COCAINE SCREEN NEGATIVE; URINE MARIJUANA (THC) SCREEN NEGATIVE; URINE METHADONE SCREEN NEGATIVE; URINE PHENCYCLIDINE SCREEN NEGATIVE
== END 2020-05-04 21:31 | disposition home or self-care (01) ==
LOC: LC 20:01
PROVIDERS: ATTEND Student in an Organized Health Care Education/Training Program
DX: O47.1 False labor at or after 37 completed weeks of gestation (principal); Z3A.33 33 weeks gestation of pregnancy; Z88.0 Allergy status to penicillin; Z87.891 Personal history of nicotine dependence
CPT/HCPCS: 59025; 80307; 81001

== ENCOUNTER 2020-05-21 16:25 | Outpatient (CLI) | payer BC, MEDICAID ==
[2020-05-21] MEDS ORDERED: ACETAMINOPHEN 325 MG TABLET PO PRN (16:39)
[2020-05-21] MEDS ORDERED: ZOLPIDEM TARTRATE 5 MG TABLET PO PRN (16:39)
--- NOTE | 2020-05-21 16:52 | Non Stress Test Report ---
Non Stress Test Datetime Report Generated by CPN: 05/21/2020 16:52 DEMOGRAPHIC EGA NST: 33.2 INDICATION Indication for Study (NST) Other: labor check MONITORING Monitor Explained: Monitor Explained; Test Explained; Patient Verbalized Understanding Time on Monitor: 05/04/2020 20:16 Time on Monitor: 05/04/2020 20:16 Time off Monitor: 05/04/2020 21:22 NST Duration: 66 NST INTERVENTIONS NST Interventions: None; PO Hydration Physician Notified NST: Hodgson BABY A: [id number] BABY A Movement : Present Contraction Frequency : irregular FHR Baseline : 125 Accelerations : 15X15 Decelerations : None Variability : Moderate 6-25bpm NST Review: Meets Criteria for Reactive NST NST Review and Verified By : NIMA valentine Results: Reactive NST REPORT Report Trigger: Send Report
[2020-05-21 17:25] LABS: HEMATOCRIT 30.4 % (36.0-47.0); HEMOGLOBIN 10.3 g/dL (12.0-15.5); MEAN CORPUSCULAR HGB CONC 33.8 g/dL (32.0-36.0); MEAN CORPUSCULAR VOLUME 86 fl (80-97); PLATELET COUNT 285 10^3/uL (150-450); RED BLOOD COUNT 3.54 10^6/uL (3.72-5.28); RED CELL DISTRIBUTION WIDTH 13.2 % (11.5-14.0)
[2020-05-21 17:53] LABS: APPEARANCE,URINE CLEAR; BILIRUBIN,URINE NEGATIVE (NEGATIVE); COLOR,URINE STRAW; GLUCOSE, URINE NEGATIVE (NEGATIVE); KETONES,URINE NEGATIVE (NEGATIVE); LEUKOCYTE ESTERASE,URINE NEGATIVE (NEGATIVE); NITRITE,URINE NEGATIVE (NEGATIVE); PROTEIN,URINE NEGATIVE (NEGATIVE); URINE SPECIFIC GRAVITY 1.006; UROBILINOGEN,URINE NEGATIVE mg/dL (<2.0)
[2020-05-21 18:04] LABS: UR PRO/CREAT RATIO RESULT 0.4 mg/mg (0.0-0.2); URINE PROTEIN 20.1 mg/dL (<12)
[2020-05-21 18:17] LABS: ALBUMIN 3.7 g/dL (3.5-5.0); ALKALINE PHOSPHATASE 169 U/L (38-126); ANION GAP 10 (5-19); ASPARTATE AMINO TRANSFERASE 13 U/L (14-36); BILIRUBIN,DIRECT 0.1 mg/dL (0.0-0.4); BILIRUBIN,TOTAL 0.4 mg/dL (0.2-1.3); CARBON DIOXIDE 23 mmol/L (22-30); CHLORIDE 104 mmol/L (98-107); GLUCOSE 71 mg/dL (75-110); POTASSIUM 3.7 mmol/L (3.6-5.0); TOTAL PROTEIN 6.4 g/dL (6.3-8.2); URIC ACID 3.1 mg/dL (2.5-6.2)
[2020-05-21 18:18] LABS: BLOOD UREA NITROGEN < 2 mg/dL (7-20)
--- NOTE | 2020-05-21 21:06 | Non Stress Test Report ---
Non Stress Test Datetime Report Generated by CPN: 05/21/2020 21:06 DEMOGRAPHIC EGA NST: 35.5 INDICATION Indication for Study (NST) Other: pre-eclampsia and lc MONITORING Monitor Explained: Monitor Explained; Test Explained; Patient Verbalized Understanding Time on Monitor: 05/21/2020 19:00 Time off Monitor: 05/21/2020 19:34 NST Duration: 34 NST INTERVENTIONS NST Interventions: PO Hydration; Reposition Patient Physician Notified NST: Dr Tran BABY A Movement : Present Contraction Frequency : irreg FHR Baseline : 125 Accelerations : 15X15 Decelerations : None Variability : Moderate 6-25bpm NST Review: Meets Criteria for Reactive NST NST Review and Verified By : Osvaldo Mendez RN NST Results: Reactive NST REPORT Report Trigger: Send Report
[2020-05-22 22:17] LABS: URINE PROTEIN 15.3 mg/dL (<12)
[2020-05-22 22:20] LABS: 24 HOUR URINE PROTEIN RESULT 1010 mg/day (42-225)
== END 2020-05-21 19:51 | disposition home or self-care (01) ==
LOC: LC 16:25
PROVIDERS: ATTEND Obstetrics & Gynecology
DX: O14.93 Unspecified pre-eclampsia, third trimester (principal); O47.03 False labor before 37 completed weeks of gestation, third trimester; Z3A.35 35 weeks gestation of pregnancy
CPT/HCPCS: 36415; 59025; 80053; 81001; 82570; 83615; 84156; 84550; 85027

== ENCOUNTER 2020-05-26 09:26 | Outpatient (CLI) | payer BC, MEDICAID ==
[2020-05-26] MEDS ORDERED: RINGERS SOLUTION,LACTATED 1,000 ML IV PRN (10:06)
[2020-05-26] MEDS ORDERED: PROMETHAZINE HCL INJ 25 MG/1 ML VIAL IV ONE (10:09)
[2020-05-26 10:28] LABS: APPEARANCE,URINE SLIGHTLY-CLOUDY; BILIRUBIN,URINE NEGATIVE (NEGATIVE); COLOR,URINE YELLOW; GLUCOSE, URINE NEGATIVE (NEGATIVE); KETONES,URINE NEGATIVE (NEGATIVE); LEUKOCYTE ESTERASE,URINE NEGATIVE (NEGATIVE); NITRITE,URINE NEGATIVE (NEGATIVE); PROTEIN,URINE NEGATIVE (NEGATIVE); URINE SPECIFIC GRAVITY 1.006; UROBILINOGEN,URINE NEGATIVE mg/dL (<2.0)
[2020-05-26] MEDS ORDERED: PROMETHAZINE HCL INJ 25 MG/1 ML VIAL ONE (10:36)
[2020-05-26 10:48] LABS: URINE AMPHETAMINES SCREEN NEGATIVE; URINE BARBITURATES SCREEN NEGATIVE; URINE BENZODIAZEPINES SCREEN NEGATIVE; URINE COCAINE SCREEN NEGATIVE; URINE MARIJUANA (THC) SCREEN NEGATIVE; URINE METHADONE SCREEN NEGATIVE; URINE PHENCYCLIDINE SCREEN NEGATIVE
[2020-05-26 10:57] LABS: UR PRO/CREAT RATIO RESULT 0.3 mg/mg (0.0-0.2); URINE CREATININE 51.9 mg/dL (16-327); URINE PROTEIN 15.3 mg/dL (<12)
[2020-05-26] MEDS ORDERED: OXYCODONE-ACETAMINOPHEN 5-325 MG TABLET PO ONE (12:15)
[2020-05-26] MEDS ORDERED: OXYCODONE-ACETAMINOPHEN 5-325 MG TABLET ONE (12:16)
--- NOTE | 2020-05-26 13:56 | Non Stress Test Report ---
Non Stress Test Datetime Report Generated by CPN: 05/26/2020 13:56 DEMOGRAPHIC EGA NST: 36.3 MONITORING Monitor Explained: Monitor Explained; Test Explained; Patient Verbalized Understanding Time on Monitor: 05/26/2020 09:38 Time off Monitor: 05/26/2020 13:00 NST Duration: 202 NST INTERVENTIONS NST Interventions: IV Fluids; Reposition Patient Physician Notified NST: Dr. Tran BABY A: [id number] BABY A Movement : Present Contraction Frequency : irregular FHR Baseline : 135 Accelerations : 15X15 Decelerations : Variable Variability : Moderate 6-25bpm NST Review: Meets Criteria for Reactive NST NST Review and Verified By : B Baidy RN NST Results: Reactive NST REPORT Report Trigger: Send Report
== END 2020-05-26 13:52 | disposition home or self-care (01) ==
LOC: LC 09:26
PROVIDERS: ATTEND Obstetrics & Gynecology
DX: O36.8330 Maternal care for abnormalities of the fetal heart rate or rhythm, third trimester, not applicable or unspecified (principal); R51 Headache; Z3A.36 36 weeks gestation of pregnancy; Z88.0 Allergy status to penicillin; Z88.1 Allergy status to other antibiotic agents; Z87.891 Personal history of nicotine dependence
CPT/HCPCS: 59025; 84156; 82570; 81001; 80307; J2550

== ENCOUNTER 2020-06-05 19:24 | Inpatient (IN) | payer BC, MEDICAID ==
[2020-06-05] MEDS ORDERED: MAG HYDROX/AL HYDROX/SIMETH SUSP 30 ML UDCUP PO PRN (19:47)
[2020-06-05] MEDS ORDERED: OXYTOCIN/0.9 % SODIUM CHLORIDE 30 UNIT/500 ML RTUINJ IV PRN (19:47)
[2020-06-05] MEDS ORDERED: DINOPROSTONE 10 MG VAGINAL INSERT.SR PV ONE (19:47)
[2020-06-05] MEDS ORDERED: ZOLPIDEM TARTRATE 5 MG TABLET PO PRN (19:47)
[2020-06-05] MEDS ORDERED: ACETAMINOPHEN 325 MG TABLET PO PRN (19:47)
[2020-06-05] MEDS ORDERED: RINGERS SOLUTION,LACTATED 300 ML IV ONE (19:47)
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
[2020-06-05 20:10] LABS: HEMATOCRIT 29.1 % (36.0-47.0); MEAN CORPUSCULAR HEMOGLOBIN 28.3 pg (27.0-33.4); MEAN CORPUSCULAR HGB CONC 34.2 g/dL (32.0-36.0); MEAN CORPUSCULAR VOLUME 83 fl (80-97); PLATELET COUNT 256 10^3/uL (150-450); RED BLOOD COUNT 3.53 10^6/uL (3.72-5.28); RED CELL DISTRIBUTION WIDTH 13.6 % (11.5-14.0); WHITE BLOOD COUNT 8.9 10^3/uL (4.0-10.5)
[2020-06-05] MEDS: RINGERS SOLUTION,LACTATED 1,000 ML IV PRN (20:10)
[2020-06-05] MEDS ORDERED: OXYTOCIN 10 UNIT/ML VIAL ONE (20:20)
[2020-06-05] MEDS ORDERED: LIDOCAINE 1% INJ-PF (10 MG/ML) 30 ML SDV ONE (20:21)
[2020-06-05] MEDS ORDERED: CEFAZOLIN 2 GM/D5W RTU 0 GM/0 ML RTUPB IV ONE (20:21)
[2020-06-05] MEDS ORDERED: OXYTOCIN/0.9 % SODIUM CHLORIDE 30 UNIT/500 ML RTUINJ ONE (20:21)
[2020-06-05] MEDS ORDERED: MISOPROSTOL 0.2 MG TABLET ONE (20:21)
[2020-06-05] MEDS ORDERED: DINOPROSTONE 10 MG VAGINAL INSERT.SR ONE (20:21)
[2020-06-05] MEDS ORDERED: CLINDAMYCIN 900 MG/D5W RTU 900 MG/50 ML RTUPB IV ONE (20:23)
[2020-06-05 20:38] LABS: ALBUMIN 3.5 g/dL (3.5-5.0); ALKALINE PHOSPHATASE 179 U/L (38-126); ANION GAP 10 (5-19); ASPARTATE AMINO TRANSFERASE 17 U/L (14-36); BILIRUBIN,DIRECT 0.2 mg/dL (0.0-0.4); BILIRUBIN,TOTAL 0.5 mg/dL (0.2-1.3); BLOOD UREA NITROGEN 5 mg/dL (7-20); CARBON DIOXIDE 21 mmol/L (22-30); CHLORIDE 102 mmol/L (98-107); GLUCOSE 110 mg/dL (75-110); TOTAL PROTEIN 6.3 g/dL (6.3-8.2); URIC ACID 4.6 mg/dL (2.5-6.2)
[2020-06-05] MEDS ORDERED: CLINDAMYCIN 900 MG/D5W RTU 900 MG/50 ML RTUPB IV SCH (22:00)
[2020-06-05 22:39] LABS: APPEARANCE,URINE CLEAR; BILIRUBIN,URINE NEGATIVE (NEGATIVE); COLOR,URINE STRAW; GLUCOSE, URINE NEGATIVE (NEGATIVE); KETONES,URINE TRACE mg/dL (NEGATIVE); LEUKOCYTE ESTERASE,URINE NEGATIVE (NEGATIVE); NITRITE,URINE NEGATIVE (NEGATIVE); PROTEIN,URINE NEGATIVE (NEGATIVE); URINE SPECIFIC GRAVITY 1.004; UROBILINOGEN,URINE NEGATIVE mg/dL (<2.0)
[2020-06-05 22:55] LABS: URINE AMPHETAMINES SCREEN NEGATIVE; URINE BARBITURATES SCREEN NEGATIVE; URINE BENZODIAZEPINES SCREEN NEGATIVE; URINE COCAINE SCREEN NEGATIVE; URINE MARIJUANA (THC) SCREEN NEGATIVE; URINE METHADONE SCREEN NEGATIVE; URINE PHENCYCLIDINE SCREEN NEGATIVE
[2020-06-05] MEDS ORDERED: ZOLPIDEM TARTRATE 5 MG TABLET ONE (23:06)
[2020-06-06] MEDS ORDERED: CLINDAMYCIN 900 MG/D5W RTU 900 MG/50 ML RTUPB IV ONE (04:27)
[2020-06-06] MEDS: RINGERS SOLUTION,LACTATED 1,000 ML IV PRN ×2 (05:23→18:55)
--- NOTE | 2020-06-06 09:48 | L&D Progress Notes ---
PROGRESS NOTES Datetime Report Generated by CPN: 06/06/2020 09:48 PROGRESS NOTE Impression Other: IUP @ 38wga-IOL Procedures: Sterile Vag Exam Plan: Continue Present Management; Induction Informed Consent Obtained: Vaginal Delivery; Induction of Labor; Risks, Benefits and Alternatives Discussed Vital Signs : Reviewed Vital Signs Comments: normal to mild range Comment: S: pt comfortable after cervidil, wants to try IV pain meds instead of epidural when the time comes for pain control, no concerns at this time O: mild range bps,Cat I tracing, cervix as stated A: IUP @ 38w IOL for GHTN P:will continue IOL and start pitocin at this time- increase q15min, anticipate delivery. GBS positive and treated with clyndamycin last night but GBS is clyndamycin resistant, will start vancomycin and AROM at next check. Dr. Tran is the OB on today and aware of pt and poc LAST VAGINAL EXAM-NURSING Nursing Exam Dilitation: 3.0 Nursing Exam Effacement: Long Nursing Exam Station: -3 Nursing Exam Contractions: irregular FETUS A FHR Category: Category I : 37.6 Estimated Weight (gm): 3200 Presentation: Vertex SIGNATURE SIGNATURE: [id number];[id number] Assignment: Krish Tran MD Signature: with User ID: Michaela : with User ID: Jenise
[2020-06-06] MEDS ORDERED: VANCOMYCIN HCL 1,000 MG in DEXTROSE 5%-WATER 250 ML IV SCH (10:00)
--- NOTE | 2020-06-06 15:11 | L&D Progress Notes ---
PROGRESS NOTES Datetime Report Generated by CPN: 06/06/2020 15:11 PROGRESS NOTE Impression Other: IUP @ 38wga-IOL Procedures: Artificial ROM; Sterile Vag Exam Plan: Continue Present Management; Induction Informed Consent Obtained: Vaginal Delivery; Induction of Labor; Risks, Benefits and Alternatives Discussed Vital Signs : Reviewed; Within Normal Limits Vital Signs Comments: normal to mild range Comment: S: pt comfortable, considering IV pain medication for pain control, no concerns at this time, agreeable to AROM O: VSS, Cat I tracing, cervix as stated, pit @ 20mu/min A: IUP @ 38w IOL-stable, progressing AROM-large amount of clear fluid, pt tolerated well P: continue pitocin, epidural prn, anticipate delivery, re-assess as clinically indicated, earlier prn VAGINAL EXAM Contractions: q2-3min LAST VAGINAL EXAM-NURSING Nursing Exam Dilitation: 6.0 Nursing Exam Effacement: 70 Nursing Exam Station: -2 Nursing Exam Contractions: irregular MEMBRANES Membranes: Ruptured FETUS A Monitoring: External US FHR Category: Category I : 37.6 Estimated Weight (gm): 3200 Presentation: Vertex SIGNATURE SIGNATURE: [id number];[id number];10,[id number] Assignment: Krish Tran MD Signature: with User ID: Jenise : with User ID: Jenise
[2020-06-06] MEDS ORDERED: PROMETHAZINE HCL INJ 25 MG/1 ML VIAL IV ONE (15:27)
[2020-06-06] MEDS ORDERED: NALBUPHINE HCL INJ 10 MG/1 ML AMPULE IV ONE (15:27)
[2020-06-06] MEDS ORDERED: NALBUPHINE HCL INJ 10 MG/1 ML AMPULE ONE (15:28)
[2020-06-06] MEDS ORDERED: PROMETHAZINE HCL INJ 25 MG/1 ML VIAL ONE (15:28)
[2020-06-06] MEDS ORDERED: FENTANYL/BUPIVACAINE/NS/PF 300 MCG/150 ML RTUINJ EPI ONE (16:44)
[2020-06-06] MEDS ORDERED: EPHEDRINE SULFATE INJ 50 MG/1 ML AMPULE ONE (16:44)
[2020-06-06] MEDS ORDERED: ROPIVACAINE HCL 0.2% INJ/PF (2 MG/ML) 20 ML SDV ONE (16:45)
[2020-06-06] MEDS ORDERED: ZOLPIDEM TARTRATE 5 MG TABLET PO PRN (19:49)
[2020-06-06] MEDS ORDERED: DIBUCAINE 1% OINTMENT 28 GM TP PRN (19:49)
[2020-06-06] MEDS ORDERED: ACETAMINOPHEN WITH CODEINE #3 TABLET PO PRN ×2 (19:49)
[2020-06-06] MEDS ORDERED: DIPHENHYDRAMINE HCL 25 MG CAPSULE PO PRN (19:49)
[2020-06-06] MEDS ORDERED: PROMETHAZINE HCL INJ 25 MG/1 ML VIAL IV PRN (19:49)
[2020-06-06] MEDS ORDERED: PROMETHAZINE HCL 25 MG SUPP.RECT PR PRN (19:49)
[2020-06-06] MEDS ORDERED: PROMETHAZINE HCL 25 MG TABLET PO PRN (19:49)
[2020-06-06] MEDS ORDERED: MAGNESIUM HYDROXIDE SUSP 30 ML UDCUP PO PRN (19:49)
[2020-06-06] MEDS ORDERED: MEASLES,MUMPS&RUBELLA VACC/PF 0.5 ML VIAL SUBCUT PRN (19:49)
[2020-06-06] MEDS ORDERED: DIPH/PERTUSS(ACELL)/TETANUS VAC/PF 0.5 ML SYR (>=10YO) IM PRN (19:49)
[2020-06-06] MEDS ORDERED: BENZOCAINE/MENTHOL AEROSOL SPRAY 56 ML TOP PRN (19:49)
[2020-06-06] MEDS ORDERED: NA PHOS,M-B/NA PHOS,DI-BA (ADULT) 133 ML ENEMA PR PRN (19:49)
[2020-06-06] MEDS ORDERED: OXYTOCIN/0.9 % SODIUM CHLORIDE 30 UNIT/500 ML RTUINJ IV PRN (19:49)
[2020-06-06] MEDS ORDERED: ACETAMINOPHEN 650 MG SUPP.RECT PR PRN (19:49)
[2020-06-06] MEDS ORDERED: PSEUDOEPHEDRINE HCL 30 MG TABLET PO PRN (19:49)
[2020-06-06] MEDS ORDERED: GLYCERIN/WITCH HAZEL LEAF 1 EACH MED..WIPE TP PRN (19:49)
[2020-06-06] MEDS ORDERED: ACETAMINOPHEN WITH CODEINE #3 TABLET ONE (19:58)
--- NOTE | 2020-06-06 20:55 | Delivery Summary ---
Del Sum A-C Datetime Report Generated by CPN: 06/06/2020 20:54 DELIVERY PERSONNEL DELIVERY PERSONNEL: [id number] Delivery Doctor:: Krish Tran MD Labor and Delivery Nurse:: Laurie Holman RN Nursery Nurse:: Rowena Little RN Nursery Nurse:: Rebecca Alaniz RN Dope Pourer/TAXI PROPRIETOR: Carla ST Annie Dope Pourer/TAXI PROPRIETOR: Nicole Obando, RESEARCH/PROGRAM DIRECTOR MATERNAL INFORMATION Delivery Anesthesia: Epidural Medications After Delivery: Pitocin 30 Units in 500ml NS/D5W Estimated Blood Loss (ml): 250 Maternal Complications: None LABOR SUMMARY EDC: 06/20/2020 00:00 No. Babies in Womb: 1 Attempted: No Labor Anesthesia: None LABOR INFORMATION Reason for Induction: Pre-Eclampsia Onset of Labor: 06/06/2020 14:29 Complete Dilatation: 06/06/2020 17:44 Cervical Ripening Agents: Cervidil Oxytocin: Induction Group B Beta Strep: positive Antibiotics # of Doses: 3 Antibiotics Time of Last Dose: 06/06/2020 09:44 Name of Antibiotic Given: Clindamycin/Vancomycin Steroids Given: None Reason Steroids Not Administered: Not Applicable MEMBRANES Membranes Rupture Method: Artificial Rupture of Membranes: 06/06/2020 14:29 Length of Rupture (hr): 5.13 Amniotic Fluid Color: Clear Amniotic Fluid Amount: Large Amniotic Fluid Odor: Normal STAGES OF LABOR Stage 1 hr: 3 Stage 1 min: 15 Stage 2 hr: 1 Stage 2 min: 53 Stage 3 hr: 0 Stage 3 min: 7 Total Time in Labor hr: 5 Total Time in Labor min: 15 VAGINAL DELIVERY Episiotomy: None Laceration #1: Perineal Laceration Extension #1: Second Degree Laceration #2: None Laceration Extension #2: N/A Laceration #3: None Laceration Extension #3: N/A Laceration Repair: Yes Laceration Repair Note: Repair of very small perineal laceration with a 3-0 chromic suture times one. Sponge Count Correct: Vaginal Sweep Performed Sharps Count Correct: Yes CSECTION DELIVERY Primary Indication: N/A Secondary Indication: N/A CSection Incidence: N/A Labor: N/A Elective: N/A CSection Incision: N/A BABY A INFORMATION Delivery Date/Time: 06/06/2020 19:37 Method of Delivery: Vaginal Nurse Controlled Delivery: No Born in Route : No : N/A Forceps: N/A Vacuum Extraction: Successful Shoulder Dystocia : No ASSISTED DELIVERY BABY A Indication for Assisted Delivery: mother unable to push Catheter Prior to Procedure: Yes Station Vacuum/Forcep Apply: +2 Position Vacuum/Forcep Apply: Left Occipital Posterior Vacuum Number of Pulls: 1 Vacuum Number of PopOffs: 0 Vacuum Weaver [place]: Style for Hirewi Total Time Vacuum Applied: 20 seconds Vacuum/Forceps Comment: Vac delivered with one pull with the pressure in the green on the kiwi. Very easy pull. PRESENTATION/POSITION BABY A Presentation: Cephalic Cephalic Presentation: Vertex Vertex Position: Left Occipital Posterior Breech Presentation: N/A PLACENTA INFORMATION BABY A Placenta Delivery Time : 06/06/2020 19:44 Placenta Method of Delivery: Spontaneous Placenta Status: Delivered SCORES BABY A Heart Rate 1 min: >100 bpm Resp Effort 1 min: Good Cry Reflex Irritability 1 min: Cough or Sneeze or Pulls Away Muscle Tone 1 min: Active Motion Color 1 min: Blue/Pale Resuscitation Effort 1 min: Tactile Stimulation SCORE 1 MIN: 8 Heart Rate 5 min: >100 bpm Resp Effort 5 min: Slow, Irregular Reflex Irritability 5 min: Cough or Sneeze or Pulls Away Muscle Tone 5 min: Active Motion Color 5 min: Body Medulla, Extremities Blue Resuscitation Effort 5 min: Tactile Stimulation SCORE 5 MIN: 8 INFANT INFORMATION BABY A Gestational Age at Delivery: 38.0 Gestational Status: Early Term- 37- 38.6 Weeks Outcome : Liveborn Condition : Stable Infant Sex: Male IDENTIFICATION BABY A Infant Verification Date/Time: 06/06/2020 20:18 ID Band Number: [id number] Mother's Name Verified: Yes RN Verifying : Mario NIMA Holman Additional Verifying Personnel: Osvaldo Mendez RN WEIGHT/LENGTH BABY A Infant Birthweight (gm): 3853 Weight (lb): 8 Infant Weight (oz): 8 Length (in): 19.00 Length (cm): 48.26 CORD INFORMATION BABY A No. Cord Vessels: 3 Nuchal Cord : Around Neck x1, Loose Cord Blood Taken: Yes-For Storage (Mom's Blood type +) Infant Suction: None ASSESSMENT BABY A Infant Complications: None Physical Findings at Delivery: Within Normal Limits Respirations: Appears Normal Skin to Skin: Yes Skin to Skin Time (min): 5 Patch Press Operator/ALS Called : Yes Transferred To: Nursery BABY B INFORMATION : N/A SIGNATURES Signature: with User ID: Lyn
--- NOTE | 2020-06-06 20:55 | Birth Certificate Data ---
Cert Data Datetime Report Generated by CPPresley: 06/06/2020 20:54 CERTIFICATE DATA 47a. Care: Yes (04/21/2020 10:07:Aruna Lozada RN) 47b. Date of First Visit: 01/04/2020 00:00 (04/21/2020 10:07:GISELA Mireles) 47c. Date of Last Visit: 06/01/2020 00:00 (04/21/2020 10:07:GISELA Mireles) 47d. Number of Visits: 10 (04/21/2020 10:07:GISELA Mireles) 48a. Number of Prev Live Births: 3 (04/21/2020 10:07:GISELA Mireles) 48b. Now Livin (04/21/2020 10:07:Aruna Lozada RN) 48c. Live Births Now : 0 (04/21/2020 10:07:QS system process) 48d. Date of Last Live : 01/23/2019 00:00 (04/21/2020 10:07:Eloisa Bellavance, RNC) 48e. Losses: 0 (04/21/2020 10:07:Eloisa Bellavance, RNC) RISK FACTORS IN THIS 49a. Diabetes: No (04/21/2020 10:07:Aruna Lozada RN) 49b. Hypertension: No (04/21/2020 10:07:Aruna Lozada RN) 49c. Previous Births: 0 (04/21/2020 10:07:Aruna Lozada RN) 49d. Stillborns: No (04/21/2020 10:07:Aruna Lozada RN) 49d. IUGR: No (04/21/2020 10:07:Aruna Lozada RN) 49e. Infertility Treatment: No (04/21/2020 10:07:Aruna Lozada RN) 49f. Previous Cesareans: 0 (04/21/2020 10:07:Aruna Lozada RN) Mother's Height 50b. Height Inches: 69 (06/05/2020 23:03:QS system process) Mother's Weight 51a. Pre- Weight (lbs): 174 (04/21/2020 10:07:Aruna Lozada RN) 51b. Weight at Delivery (lbs): 218 (06/05/2020 23:03:QS system process) 52. Dt Last Normal Menses Began: 10/27/2019 00:00 (04/21/2020 10:07:GISELA Mireles) Infections Present/Treated 53a. Gonorrhea: No (04/21/2020 10:07:GISELA Mireles) Results this Hospital Visit : Negative (04/21/2020 10:07:Rasheeda Proctor RN) 53b. Syphilis: No (04/21/2020 10:07:Aruna Lozada RN) Results this Hospital Visit: NONREACTIVE (06/05/2020 19:45:QS system process) 53c. Chlamydia: Yes (04/21/2020 10:07:Aruna Lozada RN) Results this Hospital Visit: Negative (04/21/2020 10:07:Rasheeda Proctor RN) 53d. Hepatitis B: No (04/21/2020 10:07:Aruna Lozada RN) Results this Hospital Visit: Negative (04/21/2020 10:07:Rasheeda Proctor RN) 53e. Hepatitis C: Negative (04/21/2020 10:07:Rasheeda Proctor RN) 53h. Mother Tested for HBsAG: Yes (04/21/2020 10:07:GISELA Mireles) 53i. Date Tested: 01/04/2020 00:00 (04/21/2020 10:07:Rasheeda Proctor RN) 53j. Test Result: Negative (04/21/2020 10:07:Rasheeda Proctor RN) Obstetric Procedures 54a, b, c. Obstetric Procedures: Ultrasound (04/21/2020 10:07:Aruna Lozada RN) Cigarette Smoking 55a. 3 Months Before Preg - Ci (04/21/2020 10:07:Laurie Holman RN) 55b. 1st Trimester of Preg- Ci (04/21/2020 10:07:Laurie Holman RN) 55c. 2nd Trimester of Preg- Ci (04/21/2020 10:07:Laurie Holman RN) 55d. 3rd Trimester of Preg- Ci (04/21/2020 10:07:Laurie Holman RN) Onset of Labor 56a. PROM >12 Hrs: 5.13 (04/21/2020 10:07:QS system process) 56b. Precipitous Labor <3 Hrs: 5 (04/21/2020 10:07:QS system process) 56c. Prolonged Labor > 20 Hrs: 5 (04/21/2020 10:07:QS system process) 57a. Induction of Labor: Induction (04/21/2020 10:07:Arianna Eddy RN) 57a. Induction of Labor: Cervidil (06/05/2020 20:46:Laurie Holman RN) 57c. Non-Vertex Presentation A: Vertex (04/21/2020 10:07:Krish Tran MD ([facility])) 57d. Steroids - Lung Mat: None (04/21/2020 10:07:Arinana NIMA Eddy) 57d. Steroids - Lung Mat: Not Applicable (04/21/2020 10:07:Arianna Eddy RN) 57e. Antibiotics During Labor: 06/06/2020 09:44 (04/21/2020 10:07:Terry Vegas RN) 57g. Moderate/Heavy Meconium: Clear (06/06/2020 14:29:Arianna Eddy RN) 57h. Intolerance of Labor: N/A (04/21/2020 10:07:Terry Vegas RN) : N/A (04/21/2020 10:07:Terry Vegas RN) 57i. Epidural/Spinal Anesthesia: None (04/21/2020 10:07:December NIMA Eddy) Method of Delivery 58a. Forceps - Unsuccessful A: N/A (04/21/2020 10:07:Laurie Holman RN) 58b. Vacuum - Unsuccessful A: Successful (04/21/2020 10:07:Krish Tran MD ([facility])) 58c. Presentation at 58c. Presentation at - A : Vertex (04/21/2020 10:07:Krish Tran MD ([facility])) 58c. Presentation at - A : N/A (04/21/2020 10:07:Krish Tran MD ([facility])) 58c. Presentation at - A : Cephalic (05/04/2020 20:46:Rasheeda Proctor RN) Final Route and Method of Del 58d. Baby A Route/Delivery: Vaginal (06/06/2020 19:37:Laurie Holman RN) 58e. Trial of Labor Attempted: No (04/21/2020 10:07:Arianna Eddy RN) 58e. Trial of Labor Attempted A: N/A (04/21/2020 10:07:Arianna Eddy RN) 58e. Trial of Labor Attempted B: N/A (04/21/2020 10:07:Arianna Eddy RN) Maternal Morbidity 59b. 3rd or 4th Degree Lacs: Perineal (04/21/2020 10:07:Damain Tran, MD ([facility])) Birthweight Baby A: 3853 (04/21/2020 10:07:Laurie Holman RN) 60a. Pounds : 8 (04/21/2020 10:07:QS system process) 60b. Ounces: 8 (04/21/2020 10:07:QS system process) 61. GA at Delivery Baby A: 38.0 (04/21/2020 10:07:Arianna Eddy RN) : Early Term- 37- 38.6 Weeks (04/21/2020 10:07:QS system process) 62a. 5 Minute Baby A: 8 (04/21/2020 10:07:QS system process)
[2020-06-06] MEDS ORDERED: IBUPROFEN 800 MG TABLET ONE (22:40)
[2020-06-06] MEDS: IBUPROFEN 800 MG TABLET PO SCH (22:43)
[2020-06-06] MEDS ORDERED: HYDROXYZINE PAMOATE 50 MG CAPSULE PO PRN (23:22)
[2020-06-06] MEDS ORDERED: ESCITALOPRAM OXALATE 10 MG TABLET PO ONE (23:30)
[2020-06-07] MEDS: IBUPROFEN 800 MG TABLET PO SCH ×3 (06:02→21:51)
[2020-06-07 07:25] LABS: HEMATOCRIT 25.1 % (36.0-47.0); HEMOGLOBIN 8.5 g/dL (12.0-15.5); MEAN CORPUSCULAR VOLUME 82 fl (80-97); PLATELET COUNT 242 10^3/uL (150-450); RED BLOOD COUNT 3.04 10^6/uL (3.72-5.28); RED CELL DISTRIBUTION WIDTH 13.9 % (11.5-14.0); WHITE BLOOD COUNT 9.1 10^3/uL (4.0-10.5)
[2020-06-07] MEDS: FAMOTIDINE 20 MG TABLET PO SCH ×2 (09:10→10:20)
[2020-06-07] MEDS: PRENATAL VITAMIN W DHA CAPSULE PO SCH (10:20)
[2020-06-07] MEDS: FERROUS SULFATE 325 MG TABLET PO SCH ×2 (10:20→17:53)
[2020-06-07] MEDS: DOCUSATE SODIUM 100 MG CAPSULE PO SCH ×2 (10:20→17:53)
[2020-06-07] MEDS: SENNOSIDES/DOCUSATE 8.6-50 MG 1 EACH TABLET PO SCH (10:20)
--- NOTE | 2020-06-07 10:50 | PDOC PROGRESS REPORT ---
Subjective-OB Progress Note for:: 06/07/20 Subjective: reports bleeding slowing, pain controlled with current meds. denies needs Physical Exam (OB) Vital Signs: Temp Pulse Resp BP Pulse Ox 98.1 F 81 16 107/65 99 06/07/20 08:00 06/07/20 08:00 06/07/20 08:00 06/07/20 08:00 06/07/20 08:00 Intake & Output 06/06/20 06/07/20 06/08/20 06:59 06:59 06:59 Intake Total 1000 2500 Balance 1000 2500 Weight 99.4 kg - Maternal Morbidity 59. Maternal Morbidity (serious complications experinced by the mother associated with labor and delivery: None of the above - Abdomen Description: Soft Hernia Present: Yes Fundal Description: Firm, Midline Fundal Height: u/u - u/2 - Abdominal Distension: No distension Tenderness: Nontender - Extremities Lower extremities: Megan's sign - neg Calf: Normal, Nontender Objective-Diagnostic Laboratory: 06/07/20 06:48 06/05/20 19:45 06/07/20 06:48 WBC 9.1 RBC 3.04 L Hgb 8.5 L Hct 25.1 L MCV 82 MCH 28.0 MCHC 34.0 RDW 13.9 Plt Count 242 Assessment and Plan(PN) - Time Spent with Patient Time with patient: Less than 15 minutes Medications reviewed and adjusted accordingly: Yes - Disposition Anticipated Discharge Disposition: Home, Self Care Anticipated Discharge Timeframe: within 48 hours
[2020-06-07] MEDS ORDERED: ESCITALOPRAM OXALATE 10 MG TABLET PO SCH (22:00)
[2020-06-08] MEDS: FAMOTIDINE 20 MG TABLET PO SCH ×2 (03:52→09:28)
[2020-06-08] MEDS: IBUPROFEN 800 MG TABLET PO SCH ×2 (05:39→13:34)
[2020-06-08] MEDS: PRENATAL VITAMIN W DHA CAPSULE PO SCH (09:28)
[2020-06-08] MEDS: DOCUSATE SODIUM 100 MG CAPSULE PO SCH (09:28)
[2020-06-08] MEDS: SENNOSIDES/DOCUSATE 8.6-50 MG 1 EACH TABLET PO SCH (09:28)
[2020-06-08] MEDS: FERROUS SULFATE 325 MG TABLET PO SCH (09:29)
--- NOTE | 2020-06-08 11:36 | PDOC DISCHARGE SUMMARY ---
Impression - Admit/DC Date/PCP Admission Date/Primary Care Provider: 06/05/20 19:24 FLORES BILLINGSLEY Discharge Date: 06/08/20 - Discharge Diagnosis (1) Encounter for induction of labor Is this a current diagnosis for this admission?: Yes (2) GBS (group B Streptococcus carrier), +RV culture, currently Is this a current diagnosis for this admission?: Yes (3) Second degree perineal laceration during delivery Is this a current diagnosis for this admission?: Yes (4) Vacuum extractor delivery, delivered Is this a current diagnosis for this admission?: Yes (5) Precipitous delivery Is this a current diagnosis for this admission?: Yes - Additional Information Resuscitation Status: Full Code Discharge Diet: Regular Discharge Activity: Activity As Tolerated, Pelvic Rest Referrals: ASIYA MONROE FNP-C [Primary Care Provider] - Home Medications: Escitalopram Oxalate [Lexapro 10 mg Tablet] 20 mg PO QHS #30 tablet 01/25/19 Hydroxyzine Pamoate [Vistaril 50 mg Capsule] 50 mg PO QID PRN 05/21/20 Vit/Dha [ Multi + Dha Capsule] 1 cap PO DAILY capsule 06/08/20 HPI Reason(s) for Admission: Induction of Labor, Obstetric Complications Procedures: NST Intrapartum Procedure(s): Vacuum Extraction Complication(s): Laceration-Perineal Laceration-Degree: 2nd Hospital Course 59. Maternal Morbidity (serious complications experinced by the mother associated with labor and delivery: None of the above Results Laboratory Results: WBC 9.1 10^3/uL (4.0-10.5) 06/07/20 06:48 RBC 3.04 10^6/uL (3.72-5.28) L 06/07/20 06:48 Hgb 8.5 g/dL (12.0-15.5) L 06/07/20 06:48 Hct 25.1 % (36.0-47.0) L 06/07/20 06:48 MCV 82 fl (80-97) 06/07/20 06:48 MCH 28.0 pg (27.0-33.4) 06/07/20 06:48 MCHC 34.0 g/dL (32.0-36.0) 06/07/20 06:48 RDW 13.9 % (11.5-14.0) 06/07/20 06:48 Plt Count 242 10^3/uL (150-450) 06/07/20 06:48 Sodium 133.1 mmol/L (137-145) L 06/05/20 19:45 Potassium 4.0 mmol/L (3.6-5.0) 06/05/20 19:45 Chloride 102 mmol/L (98-107) 06/05/20 19:45 Carbon Dioxide 21 mmol/L (22-30) L 06/05/20 19:45 Anion Gap 10 (5-19) 06/05/20 19:45 BUN 5 mg/dL (7-20) L 06/05/20 19:45 Creatinine 0.56 mg/dL (0.52-1.25) 06/05/20 19:45 Est GFR ( Amer) > 60 (>60) 06/05/20 19:45 Est GFR (MDRD) Non-Af > 60 (>60) 06/05/20 19:45 Glucose 110 mg/dL (75-110) 06/05/20 19:45 Uric Acid 4.6 mg/dL (2.5-6.2) 06/05/20 19:45 Calcium 9.0 mg/dL (8.4-10.2) 06/05/20 19:45 Total Bilirubin 0.5 mg/dL (0.2-1.3) 06/05/20 19:45 Direct Bilirubin 0.2 mg/dL (0.0-0.4) 06/05/20 19:45 Neonat Total Bilirubin Not Reportable 06/05/20 19:45 Neonat Direct Bilirubin Not Reportable 06/05/20 19:45 Neonat Indirect Bili Not Reportable 06/05/20 19:45 AST 17 U/L (14-36) 06/05/20 19:45 ALT 8 U/L (<35) 06/05/20 19:45 Alkaline Phosphatase 179 U/L (38-126) H 06/05/20 19:45 Lactate Dehydrogenase 182 U/L (120-246) 06/05/20 19:45 Total Protein 6.3 g/dL (6.3-8.2) 06/05/20 19:45 Albumin 3.5 g/dL (3.5-5.0) 06/05/20 19:45 Urine Color STRAW 06/05/20 19:45 Urine Appearance CLEAR 06/05/20 19:45 Urine pH 7.0 (5.0-9.0) 06/05/20 19:45 Ur Specific [place] 1.004 06/05/20 19:45 Urine Protein NEGATIVE mg/dL (NEGATIVE) 06/05/20 19:45 Urine Glucose (UA) NEGATIVE mg/dL (NEGATIVE) 06/05/20 19:45 Urine Ketones TRACE mg/dL (NEGATIVE) H 06/05/20 19:45 Urine Blood NEGATIVE (NEGATIVE) 06/05/20 19:45 Urine Nitrite NEGATIVE (NEGATIVE) 06/05/20 19:45 Urine Bilirubin NEGATIVE (NEGATIVE) 06/05/20 19:45 Urine Urobilinogen NEGATIVE mg/dL (<2.0) 06/05/20 19:45 Ur Leukocyte Esterase NEGATIVE (NEGATIVE) 06/05/20 19:45 Urine Ascorbic Acid NEGATIVE (NEGATIVE) 06/05/20 19:45 Urine Opiates Screen NEGATIVE 06/05/20 19:45 Urine Methadone Screen NEGATIVE 06/05/20 19:45 Ur Barbiturates Screen NEGATIVE 06/05/20 19:45 Ur Phencyclidine Scrn NEGATIVE 06/05/20 19:45 Ur Amphetamines Screen NEGATIVE 06/05/20 19:45 U Benzodiazepines Scrn NEGATIVE 06/05/20 19:45 Urine Cocaine Screen NEGATIVE 06/05/20 19:45 U Marijuana (THC) Screen NEGATIVE 06/05/20 19:45 RPR NONREACTIVE (NONREACTIVE) 06/05/20 19:45 Blood Type A POSITIVE 06/05/20 19:45 Antibody Screen NEGATIVE 06/05/20 19:45 Plan Plan of Treatment: f/u at [facility] Time Spent: Less than 30 Minutes
[2020-06-08 12:57] VITALS: BP 107/65
== END 2020-06-08 17:06 | disposition home or self-care (01) | DRG 806 ==
LOC: LR 19:24 → 2S 06-06 22:58
PROVIDERS: ADMIT Obstetrics & Gynecology; ATTEND Obstetrics & Gynecology
PROC: 10D07Z6 Extraction of Products of Conception, Vacuum, Via Natural or Artificial Opening (ICD-10-PCS; principal; 2020-06-06)
PROC: 0KQM0ZZ Repair Perineum Muscle, Open Approach (ICD-10-PCS; 2020-06-06)
DX: O14.94 Unspecified pre-eclampsia, complicating childbirth (principal); Q79.60 Ehlers-Danlos syndrome, unspecified; Z37.0 Single live birth; Z16.29 Resistance to other single specified antibiotic; O99.824 Streptococcus B carrier state complicating childbirth; O99.89 Other specified diseases and conditions complicating pregnancy, childbirth and the puerperium; O69.81X0 Labor and delivery complicated by cord around neck, without compression, not applicable or unspecified; O62.3 Precipitate labor; O70.1 Second degree perineal laceration during delivery; Z88.0 Allergy status to penicillin; Z87.891 Personal history of nicotine dependence; Z91.410 Personal history of adult physical and sexual abuse; Z3A.38 38 weeks gestation of pregnancy
CPT/HCPCS: 1967; 36415; 80053; 80307; 81005; 83615; 84550; 85027; 86592; 86850; 86900; 86901; J0690; J2300; J2550; J2590; J2795; J3010; J3370; J3490; J7060

== ENCOUNTER 2020-08-03 13:27 | Emergency (ER) | payer BC, MEDICAID ==
[2020-08-03] MEDS ORDERED: HYDROCODONE/ACETAMINOPHEN 5-325 MG TABLET PO ONE (14:08)
--- NOTE | 2020-08-03 14:11 | ER Document Report ---
ED General - General Chief Complaint: Shoulder Pain Stated Complaint: RIGHT SHOULDER PAIN Time Seen by Provider: 08/03/20 14:04 Primary Care Provider: ASIYA MONROE FNP-C [Primary Care Provider] - Follow up as needed Mode of Arrival: Ambulatory Information source: Patient Notes: Patient is a 30-year-old female coming in today with pain in her right shoulder. She has Gama-Danlos syndrome. She had some surgery for this sometime back and is worried that perhaps it is coming undone. Is good mobility in her arm and she does not appear to have any vascular or neurologic compromise. TRAVEL OUTSIDE OF THE [place] IN LAST 30 DAYS: No - Related Data Allergies/Adverse Reactions: amoxicillin Allergy (Verified 08/03/20 13:55) Penicillins Allergy (Verified 08/03/20 13:55) Past Medical History - Social History Smoking Status: Never Smoker Chew tobacco use (# tins/day): No Frequency of alcohol use: Occasional Drug Abuse: None Family History: Reviewed & Not Pertinent - Past Medical History Cardiac Medical History: Denies: Hx Atrial Fibrillation, Hx Coronary Artery Disease, Hx DVT, Hx Heart Attack, Hx Hypercholesterolemia, Hx Hypertension, Hx Peripheral Vascular Disease, Hx Pulmonary Embolism Pulmonary Medical History: Denies: Hx Asthma Endocrine Medical History: Denies: Hx Diabetes Mellitus Type 1, Hx Diabetes Mellitus Type 2 Renal/ Medical History: Denies: Hx Peritoneal Dialysis GI Medical History: Denies: Hx Hepatitis Psychiatric Medical History: Reports: Hx Anxiety, Hx Depression - severe anxiety Infectious Medical History: Denies: Hx Hepatitis, Hx HIV Past Surgical History: Reports: Hx Breast Surgery - breast augmentation, Hx Tonsillectomy - adenoids, Other - breast augmentation - Immunizations Immunizations up to date: Yes Review of Systems - Review of Systems Notes: Constitutional: No fevers. No chills. EENT: No eye redness. No eye pain. No ear pain. No sore throat. Cardiovascular: No chest pain. No palpitations. Respiratory: No cough. No shortness of breath. No respiratory distress. Gastrointestinal: No abdominal pain. No nausea, vomiting, or diarrhea. Genitourinary: Atraumatic. No lesions. No pain. No discharge. Musculoskeletal: Atraumatic. No swelling. No deformities. Positive right shoulder pain Skin: No rash or lesions. Lymphatic: No swollen lymph nodes. Neurologic: No headache. No syncope. Psychiatric: No suicidal or homicidal ideation. Physical Exam - Vital signs Vitals: Temp Pulse Resp BP Pulse Ox 97.7 F 70 16 133/77 H 100 08/03/20 13:30 08/03/20 13:30 08/03/20 13:30 08/03/20 13:30 08/03/20 13:30 - Notes Notes: General: Well-developed, well-nourished. In no acute distress. Non-toxic appearing. Cardiac: Well-perfused. Regular rate and rhythm. No murmurs, rubs, or gallops. Pulmonary: No respiratory distress. No cyanosis. Bilateral lung fiels are clear to auscultation. Abdominal: Non-distended. Non-rigid. Bowels sounds are present in all four quadrants. No guarding or rebound. HEENT: Head is atraumatic. Conjunctivae not reddened. No tearing. PERRL. EOMI. Orbits atraumatic. No periorbital swelling or erythema. Oropharynx is without erythema, swelling, or exudates. Neck: Supple. No adenopathy. No meningismus. Dermatologic: Warm with good turgor. No rash. Atraumatic. Chest: Atraumatic. No chest wall tenderness to palpation. Musculoskeletal: Shoulders examined. Patient has hypermobility in the right shoulder joint. No deformity noted. Diffuse tenderness. Distal neurovascular exam is intact Genitourinary: Examination deferred Neurologic: No gross neurologic deficits. Psychiatric: Normal mood. Course - Re-evaluation Re-evalutation: 08/03/20 15:07 X-rays negative. Patient has good blood flow and neuro exam. Will put her in a sling and send her back to Ortho. - Vital Signs Vital signs: Temp Pulse Resp BP Pulse Ox 97.7 F 70 16 133/77 H 100 08/03/20 13:30 08/03/20 13:30 08/03/20 13:30 08/03/20 13:30 08/03/20 13:30 - Diagnostic Test Radiology reviewed: Reports reviewed Discharge - Discharge Clinical Impression: Shoulder pain Qualifiers: Chronicity: acute Laterality: right Qualified Code(s): M25.511 - Pain in right shoulder Condition: Good Disposition: HOME, SELF-CARE Instructions: Shoulder Injury ([facility]) Additional Instructions: Please follow-up with the orthopedic surgeon who did your procedure. [place] 1 tablet every 6 hours as needed for severe pain only. Referrals: ASIYA MONROE, GUCCI-C [Primary Care Provider] - Follow up as needed
--- NOTE | 2020-08-03 14:38 | RADIOLOGY REPORT (SQ) ---
EXAM DESCRIPTION: SHOULDER RIGHT 2 OR MORE VIEWS IMAGES COMPLETED DATE/TIME: 08/03/2020 2:23 pm REASON FOR STUDY: ?dislocated COMPARISON: None. NUMBER OF VIEWS: Three views. TECHNIQUE: Internal rotation, external rotation, and Y view images acquired of the right shoulder. LIMITATIONS: None. FINDINGS: MINERALIZATION: Normal. BONES: No acute fracture. No worrisome bone lesions. JOINTS: No dislocation. VISUALIZED LUNGS AND RIBS: No pneumothorax. No rib fracture. SOFT TISSUES: No radiopaque foreign body. OTHER: No other significant finding. IMPRESSION: NEGATIVE STUDY OF THE RIGHT SHOULDER. NO RADIOGRAPHIC EVIDENCE OF ACUTE INJURY. No disl ocation TECHNICAL DOCUMENTATION: JOB ID: [id number] 2010 [employer]- All Rights Reserved Reading location - IP/workstation name: [email or web address]
[2020-08-03] MEDS ORDERED: HYDROCODONE/ACETAMINOPHEN 5-325 MG (6 TAB/ER DISP) PO PRN (15:11)
[2020-08-03 15:28] VITALS: BP 132/74
== END 2020-08-03 15:27 | disposition home or self-care (01) ==
LOC: ER 13:27
DX: M25.511 Pain in right shoulder (principal); Q79.60 Ehlers-Danlos syndrome, unspecified; Z88.0 Allergy status to penicillin
CPT/HCPCS: 99284

== ENCOUNTER 2020-08-10 05:21 | Day surgery (SDC) | payer BC, MEDICAID ==
[2020-08-06 13:36] LABS: APPEARANCE,URINE CLEAR; BILIRUBIN,URINE NEGATIVE (NEGATIVE); COLOR,URINE STRAW; GLUCOSE, URINE NEGATIVE (NEGATIVE); KETONES,URINE NEGATIVE (NEGATIVE); LEUKOCYTE ESTERASE,URINE NEGATIVE (NEGATIVE); NITRITE,URINE NEGATIVE (NEGATIVE); PROTEIN,URINE NEGATIVE (NEGATIVE); URINE SPECIFIC GRAVITY 1.003; UROBILINOGEN,URINE NEGATIVE mg/dL (<2.0)
[2020-08-06 13:38] LABS: HEMATOCRIT 34.7 % (36.0-47.0); HEMOGLOBIN 11.6 g/dL (12.0-15.5); MEAN CORPUSCULAR HEMOGLOBIN 26.3 pg (27.0-33.4); MEAN CORPUSCULAR HGB CONC 33.3 g/dL (32.0-36.0); MEAN CORPUSCULAR VOLUME 79 fl (80-97); PLATELET COUNT 301 10^3/uL (150-450); WHITE BLOOD COUNT 5.5 10^3/uL (4.0-10.5)
[~2020-08-10 05:21] MED LIST: LACTATED RINGERS 1000 ML IV PRN; LIDOCAINE 0.5% INJ-PF (5 MG/ML) 50 ML SDV SUBCUT PRN
[2020-08-10] MEDS ORDERED: LIDOCAINE 0.5% INJ-PF (5 MG/ML) 50 ML SDV ONE (06:23)
[2020-08-10] MEDS ORDERED: ONDANSETRON HCL INJ/PF 4 MG/2 ML SDV ONE (06:24)
[2020-08-10] MEDS ORDERED: DEXAMETHASONE SOD PHOSPHATE INJ 4 MG/1 ML VIAL ONE (06:24)
[2020-08-10] MEDS ORDERED: MIDAZOLAM 2 MG/2 ML INJ ONE (06:24)
[2020-08-10] MEDS ORDERED: PROPOFOL INJ 200 MG/20 ML VIAL IV ONE (06:24)
[2020-08-10] MEDS ORDERED: FENTANYL CITRATE INJ/PF 100 MCG/2 ML AMPUL ONE (06:24)
[2020-08-10] MEDS ORDERED: SUGAMMADEX SODIUM 200 MG/2 ML SDV IV ONE (06:26)
[2020-08-10] MEDS ORDERED: ONDANSETRON HCL INJ/PF 4 MG/2 ML SDV IV PRN (06:47)
[2020-08-10] MEDS ORDERED: FENTANYL CITRATE INJ/PF 100 MCG/2 ML AMPUL IV PRN ×3 (06:47)
[2020-08-10] MEDS ORDERED: OXYCODONE-ACETAMINOPHEN 5-325 MG TABLET PO PRN ×4 (06:47→08:21)
[2020-08-10] MEDS ORDERED: MORPHINE SULFATE 10 MG/ML INJ IV PRN (06:47)
[2020-08-10] MEDS ORDERED: MEPERIDINE HCL/PF INJ 25 MG/1 ML DISP.SYRIN IV PRN (06:47)
[2020-08-10] MEDS ORDERED: DIPHENHYDRAMINE HCL 50 MG/ML VIAL IV PRN (06:47)
[2020-08-10] MEDS ORDERED: PROMETHAZINE HCL INJ 25 MG/1 ML VIAL IV PRN ×2 (06:47)
[2020-08-10] MEDS ORDERED: ROCURONIUM BROMIDE INJ 50 MG/5 ML VIAL IV ONE (08:09)
[2020-08-10] MEDS ORDERED: SUCCINYLCHOLINE CHLORIDE INJ 200 MG/10 ML VIAL ONE (08:09)
[2020-08-10] MEDS ORDERED: GLYCOPYRROLATE 1 MG/5 ML VIAL ONE (08:09)
[2020-08-10] MEDS ORDERED: KETOROLAC TROMETHAMINE INJ/PF 30 MG/1 ML SDV IV PRN (08:21)
[2020-08-10] MEDS ORDERED: RINGERS SOLUTION,LACTATED 1,000 ML IV PRN (08:21)
[2020-08-10] MEDS ORDERED: IBUPROFEN 800 MG TABLET PO PRN (08:21)
--- NOTE | 2020-08-10 08:25 | Operative Report ---
Operative Report DATE OF SURGERY: 08/10/20 PREOPERATIVE DIAGNOSIS: Patient desires laparoscopic tubal ligation with cautery POSTOPERATIVE DIAGNOSIS: Same OPERATION: Laparoscopic tubal ligation with cautery SURGEON: ANYI BUTLER ANESTHESIA: GA TISSUE REMOVED OR ALTERED: Fallopian tubes COMPLICATIONS: None ESTIMATED BLOOD LOSS: Minimal INTRAOPERATIVE FINDINGS: Normal uterus tubes and ovaries PROCEDURE: Patient was taken the OR and placed in supine position. Anesthesia was induced. She was placed in a dorsolithotomy position using Tre stirrups. Her abdomen perineum and vagina were prepared and draped sterile fashion. She had voided just prior to the procedure. A sponge stick was placed in the vagina. Incision was made the umbilicus natural umbilical defect was identified and dilated allowing A blunt port to be placed. Laparoscopy confirmed appropriate placement. The abdomen was insufflated with CO2 gas. The pelvis was inspected. Each tube was identified and followed out to its fimbriated end and each tube was then cauterized at its mid isthmic portion moving back toward the uterine cornu with 5 successive bites. Photos were taken. At the completion of the procedure the gas was allowed to escape. The scope and port were removed at the same time. The fascia at the umbilicus was closed with a 2-0 Vicryl stitch and skin closed with a 4-0 undyed Vicryl stitch. The sponge stick was removed from the vagina. She is placed back in supine position. Anesthesia was reversed and she was brought to recovery room in stable condition.
--- NOTE | 2020-08-10 08:28 | Discharge Summary ---
Discharge Summary (SDC) - Discharge Final Diagnosis: Encounter for tubal ligation Date of Surgery: 08/10/20 Discharge Date: 08/10/20 Condition: Good Prescriptions: Oxycodone HCl/Acetaminophen [Percocet 5-325 mg Tablet] 1 tab PO Q4HP PRN #20 tablet PRN Reason: Ibuprofen [Motrin 800 mg Tablet] 800 mg PO Q8H PRN #30 tablet PRN Reason: Referrals: ASIYA MONROE FNP-C [Primary Care Provider] - Discharge Diet: Regular Discharge Activity: Slowly Increase Activity Home Care Assistance: None Needed
[2020-08-10] MEDS ORDERED: KETOROLAC TROMETHAMINE INJ/PF 30 MG/1 ML SDV ONE (08:44)
[2020-08-10] MEDS ORDERED: OXYCODONE-ACETAMINOPHEN 5-325 MG TABLET ONE (09:08)
[2020-08-10 11:24] VITALS: BP 123/75
--- OUTSIDE RECORDS SUMMARY | 2020-08-13 08:52 | XMS REPORT ---
:1990 [facility] [address] [place] [address] Care Team Providers Name Role Phone Morgan Sarmiento Primary Care Physician Unavailable HALI REEDER Attending Clinician Unavailable MD Krzysztof Meade Attending Clinician Unavailable MD Krzysztof Meade Attending Clinician Unavailable Lona Salinas Attending Clinician Unavailable Torsten Attending Clinician Unavailable MD Halina A Admitting Clinician Unavailable Allergies, Adverse Reactions, Alerts Allergy Name Allergy Status Severity Reaction(s) Onset Inactive Treat ing Comments Type Date Date Clinician Penicillins Allergy to Active Moderate Hives 2019-0 ([id number]) substance 06-01 00:00: 00 amoxicillin Allergy to Active 0 ([id number]) substance 06-01 00:00: 00 AMOXICILLIN Drug Active U 2016-09 allergy 10-03 00:00: 00 PENICILLIN Drug Active U 2016-09 allergy 10-03 00:00: 00 Medications This patient has no known medications. Problems Condition Condition Condition Status Onset Resolution Last Treatin g Comments Name Details Category Date Date Treatment Clinician Date Not on file Not on file [id number] Procedures This patient has no known procedures. Results Test Description Test Time Test Comments Text Results Atomic Results Result Comments Blood leukocytes automated count (number/volume) 2020-06-01 22:5 1:00 Test Item Value Reference Range Comments White Blood Count (test code = 6690-2) 8.0 3.6-11.1 Blood erythrocytes automated count (number/volume)2020-06-01 22:51:00 Test Item Value Reference Range Comments Red Blood Count (test code = 789-8) 3.63 3.69-4.88 Blood hemoglobin measurement (mass/volume)2020-06-01 22:51:00 Test Item Value Reference Range Comments Hemoglobin (test code = 718-7) 10.1 11.4-14.4 Automated blood hematocrit (volume fraction)2020-06-01 22:51:00 Test Item Value Reference Range Comments Hematocrit (test code = 4544-3) 30.9 33.3-41.4 Automated erythrocyte mean corpuscular dyqbuy3843-34-73 22:51:00 Test Item Value Reference Range Comments Mean Corpuscular Volume (test code = 787-2) 85.0 79.3 -94.8 Automated erythrocyte mean corpuscular hemoglobin (mass per erythrocyte) 2020-06-01 22:51:00 Test Item Value Reference Range Comments Mean Corpuscular Hemoglobin (test code = 785-6) 27.7 26.8-33.2 Automated erythrocyte mean corpuscular hemoglobin concentration measurement (mass/volume)2020-06-01 22:51:00 Test Item Value Reference Range Comments Mean Corpuscular Hemoglobin Concent (test code = 32.6 33.5-35.5 786-4) Automated erythrocyte distribution width [id number] 22:51:00 Test Item Value Reference Range Comments Red Cell Distribution Width (test code = 788-0) 13.5 12.0-15.1 Automated blood platelet count (count/volume)2020-06-01 22:51:00 Test Item Value Reference Range Comments Platelet Count (test code = 777-3) 264 165-353 Automated blood platelet mean volume utbobjthlnt7671-90-08 22:51:00 Test Item Value Reference Range Comments Mean Platelet Volume (test code = 76604-6) 7.9 7.5-1 0.6 Automated blood neutrophil count as percentage of total twswvtcvqj2621-78-13 22:51:00 Test Item Value Reference Range Comments Neutrophils (%) (Auto) (test code = 770-8) 63.7 43.2- 71.5 Automated blood lymphocyte count as percentage of total lqddgoiuqq6298-43-84 22:51:00 Test Item Value Reference Range Comments Lymphocytes (%) (Auto) (test code = 736-9) 27.6 16.8- 43.4 Automated blood monocyte count as percentage of total wfwisajwwm4378-30-39 22:51:00 Test Item Value Reference Range Comments Monocytes (%) (Auto) (test code = 5905-5) 7.8 4.6-12 .4 Automated blood eosinophil count as percentage of total eywvqrasdq5352-00-50 22:51:00 Test Item Value Reference Range Comments Eosinophils (%) (Auto) (test code = 713-8) 0.7 0.7-7 .8 Automated blood basophil count as percentage of total mnntpjcrlc4527-23-41 22:51:00 Test Item Value Reference Range Comments Basophils (%) (Auto) (test code = 706-2) 0.2 0.2-1.2 Blood neutrophils automated count (number/volume)2020-06-01 22:51:00 Test Item Value Reference Range Comments Neutrophils # (Auto) (test code = 751-8) 5.1 1.9-7.2 Automated blood lymphocyte count (number/volume)2020-06-01 22:51:00 Test Item Value Reference Range Comments Lymphocytes # (Auto) (test code = 731-0) 2.2 1.1-2.7 Blood monocytes automated count (number/volume)2020-06-01 22:51:00 Test Item Value Reference Range Comments Monocytes # (Auto) (test code = 742-7) 0.6 0.3-0.8 Automated blood eosinophil iltjt6607-41-92 22:51:00 Test Item Value Reference Range Comments Eosinophils # (Auto) (test code = 711-2) 0.1 0.0-0.5 Automated blood basophil count (count/volume)2020-06-01 22:51:00 Test Item Value Reference Range Comments Basophils # (Auto) (test code = 704-7) 0.0 0.0-0.1 Total ksswsfywt9149-37-41 22:51:00 Test Item Value Reference Range Comments Total Bilirubin (test code = GGU7297) 0.4 0.1-1.2 Direct xusjynslg2577-83-22 22:51:00 Test Item Value Reference Range Comments Direct Bilirubin (test code = 1968-7) 0.1 0.0-0.5 Serum or plasma indirect bilirubin measurement (mass/volume)2020-06-01 22:51:00 Test Item Value Reference Range Comments Indirect Bilirubin (test code = 1971-1) 0.3 0.0-1.1 Total protein oyydg0121-00-53 22:51:00 Test Item Value Reference Range Comments Total Protein (test code = 2885-2) 6.5 6.0-8.3 Rmuroqe7500-58-79 22:51:00 Test Item Value Reference Range Comments Albumin (test code = SMV6504) 3.3 3.2-5.2 Plasma globulin measurement (mass/volume)2020-06-01 22:51:00 Test Item Value Reference Range Comments Globulin (test code = 23793-8) 3.2 2.6-4.6 Albumin to globulin utimp8406-20-98 22:51:00 Test Item Value Reference Range Comments Albumin/Globulin Ratio (test code = 209747) 1.0 1.1- 2.5 AST (SGOT) ser/btuc9512-80-53 22:51:00 Test Item Value Reference Range Comments Aspartate Amino Transf (AST/SGOT) (test code = 10 5 -34 68069584) Alkaline olsdrtybxtv2845-72-18 22:51:00 Test Item Value Reference Range Comments Alkaline Phosphatase (test code = 49551756) 180 40-1 50 ALT (SGPT) ser/krjg9073-49-46 22:51:00 Test Item Value Reference Range Comments Alanine Aminotransferase (ALT/SGPT) < 6 0-55 Result verified by repeat (test code = 1742-6) testing. Automated urine color kfsoqdruiptiu4691-43-85 20:30:00 Test Item Value Reference Range Comments Urine Color (test code = 70418-0) Yellow Urine clarity yhvoyoxbypnui8758-98-28 20:30:00 Test Item Value Reference Range Comments Urine Appearance (test code = 61784-6) Clear Automated urine specific gravity pdvcpnrgahx9900-94-93 20:30:00 Test Item Value Reference Range Comments Urine Specific [place] (test code = 31000227) 1.010 1. 010-1.025 Urine pH measurement by automated test kyczm8166-15-01 20:30:00 Test Item Value Reference Range Comments Urine pH (test code = 20204-0) 7.0 5.5-8.5 Urine leukocyte esterase detection by automated test juxni8447-57-62 20:30:00 Test Item Value Reference Range Comments Urine Leukocyte Esterase (test code = 09147-3) Negative N egative Urine nitrite detection by automated test qhuyl6348-75-60 20:30:00 Test Item Value Reference Range Comments Urine Nitrite (test code = 53313-6) Negative Negative Urine protein detection by automated test uodpv1671-94-35 20:30:00 Test Item Value Reference Range Comments Urine Protein (test code = 49795-7) Negative Neg-Trace Urine glucose detection by automated test ouvkj2643-57-95 20:30:00 Test Item Value Reference Range Comments Urine Glucose (UA) (test code = 18231-4) Negative Negativ e Urine ketones detection by automated test ooykh4884-69-09 20:30:00 Test Item Value Reference Range Comments Urine Ketones (test code = 78822-5) Negative Negative Urine urobilinogen detection by automated test xnajy7475-81-99 20:30:00 Test Item Value Reference Range Comments Urine Urobilinogen (test code = 28003-8) 0.2 <2.0 Urine bilirubin detection by automated test papbr8272-51-20 20:30:00 Test Item Value Reference Range Comments Urine Bilirubin (test code = 04441-3) Negative Negative Urine erythrocytes detection by automated jflaco3546-08-08 20:30:00 Test Item Value Reference Range Comments Urine Blood (test code = 63174-4) Negative Negative Urine protein ywbuigpwm8059-26-16 20:30:00 Test Item Value Reference Range Comments Urine Random Total Protein (test code = 2887-8) < 6.8 1.0-14.0 Random urine creatinine yrlheltleit8128-13-25 20:30:00 Test Item Value Reference Range Comments Urine Random Creatinine (test code = 206834515) 19.06 47.00-110.00 Urine \S\2019-05-12 13:30:00 Test Item Value Reference Range Comments Urine (test code = URINEPREG) Negative N/A Assessments Condition Name Status Diagnosis Date Treating Clinici an Other instability, right shoulder Active 0 Other instability, right shoulder Active 0 Encounters Start End Encounter Admission Attending Care Care Encounter ID Date/Time Date/Time Type Type Clinicians Facility Department 2020-06-01 2020-06-02 Outpatient [facility] [id number] 19:49:00 02:25:00 HALI 2020-03-31 2020-03-31 [facility] [id number] 00:00:00 00:00:00 2020-03-30 2020-03-30 [facility] [id number] 00:00:00 00:00:00 2019-08-22 2019-08-22 O Alana Chatman [facility] [id number] 05:53:48 10:50:00 Alana Meade 2019-08-15 2019-08-15 Alana Polanco [facility] [id number] 08:55:28 23:59:59 Alana Meade 2019-07-04 2019-07-04 Outpatient MAX Espinosa [facility] [id number] 16:31:00 16:31:00 Kassidy 2019-07-02 2019-07-02 Outpatient MAX Sarmiento [facility] [id number] 07:48:00 07:48:00 Morgan Payers Payer Name Policy Type Policy Number Effective Date Expiration D ate Plan of Treatment Planned Activity Planned Date Details Comments Future Scheduled Test [code = ] Future Scheduled Test [code = ] Future Scheduled Test [code = ] Social History Social Habit Start Date Stop Date Comments ASSERTION Smoking Status Start Date Stop Date Former smoker 2020-06-01 23:35:00 Social History Observation Description Sex Female Vital Signs Vital Name Observation Time Observation Value Comments WEIGHT 2020-06-01 23:52:00 99.0000 kg HEIGHT 2020-06-01 23:52:00 176.271729 cm BMI (Body Mass Index) 2020-06-01 23:52:00 31.0 kg/m2 Weight 2020-06-01 23:52:00 218.26 [lb_av]
== END 2020-08-10 10:05 | disposition home or self-care (01) ==
LOC: OROUT 05:21
PROVIDERS: ATTEND Obstetrics & Gynecology
DX: Z30.2 Encounter for sterilization (principal); F32.9 Major depressive disorder, single episode, unspecified; F19.11 Other psychoactive substance abuse, in remission; F41.9 Anxiety disorder, unspecified; F10.11 Alcohol abuse, in remission; Z87.891 Personal history of nicotine dependence; Z79.899 Other long term (current) drug therapy; Z03.818 Encounter for observation for suspected exposure to other biological agents ruled out
CPT/HCPCS: 36415; 85027; 81005; 81025; 00851; 58670; U0003; J2250; J3490 ×4; J1100; J3010; J1885; J0330; J2405; J2704; C9803; 851; 87635